=== PATIENT | female | born 1995 | race Caucasian/White ===

== ENCOUNTER 2022-05-31 12:04 | Emergency (ER) | payer MEDICAID, SELFPAY ==
[2022-05-31 12:35] VITALS: BP 141/87; PULSE 92; RESP 18; TEMP 37.2; O2SAT 97; BMI 30.3
--- NOTE | 2022-05-31 12:37 | EXP.UTC ---
Discharge Plan Disposition Patient Disposition: Home, Self-Care Condition: Good Prescriptions Prescriptions: New pllubihnmylcige-eulpxlmpw-ML [Bromfed DM] 2-30-10 mg/5 mL Syrup 5 ml PO Q6H PRN (Reason: Cough) Qty: 240 0RF ondansetron 4 mg Tablet,Disintegrating 4 mg PO Q8H PRN (Reason: Nausea) Qty: 12 0RF No Action melatonin 3 MG tablet 3 mg PO HS Referrals Follow up/Referrals: Provider,Referral, MD [Primary Care Provider] - See instructions Activity Restrictions/Add. Instructions Additional Instructions/Restrictions: Drink plenty of fluids. Take tylenol or ibuprofen for pain or fever. Take the medications as directed. Follow up with your regular doctor. GO TO THE ER FOR ANY WORSENING SYMPTOMS Quarantine until you know the results of your covid-19 test. Notify your school or workplace of your results and follow their instructions regarding return to work/school. Clinical Impressions Clinical Impression: Acute viral syndrome Stand Alone Forms Stand Alone Forms: Work/School Release Instructions Patient Instructions: DI for Viral Syndrome Discharge ED Provider: Leonel Leyva [facility] General Stated complaint: Nausea,Dizziness,fever,headache,SOA Time Seen by Provider: 05/31/22 12:37 History of Present Illness Provider Complaint: She states that for the past 2 days she has had fever, chills, body aches, nausea, diarrhea, and malaise. She denies sore throat. Related Data Home Medications Medication Instructions Recorded Confirmed melatonin 3 mg tablet 3 mg PO HS SLEEP 07/26/17 07/26/17 Previous Rx's Medication Instructions Recorded onvvrkpvbobyuwp-pmwumzhwrjnjxfz-QV 5 ml PO Q6H PRN Cough #240 mL 05/31/22 2 mg-30 mg-10 mg/5 mL oral syrup (Bromfed DM) ondansetron 4 mg disintegrating 4 mg PO Q8H PRN Nausea #12 tabs 05/31/22 tablet Allergies Allergy/AdvReac Type Severity Reaction Status Date / Time No Known Allergies Allergy Verified 03/22/17 15:49 [facility] Disclaimer: The information contained in this section may have been updated after the patient was seen, as this information can be updated by other users. Social History Smoking Status: Never smoker alcohol intake: never substance use type: denies use current occupational status: employed Travel in the last 8 weeks: None ROS Obtained: Yes All systems reviewed & no additional complaints except as documented Constitutional Constitutional: Reports chills and Reports fever(s) Eyes Eyes: Denies eye discharge ENT Ears, Nose, Mouth, and Throat: Reports as per HPI Cardiovascular Cardiovascular: Denies chest pain Respiratory Respiratory: Denies chest congestion and Reports cough Gastrointestinal Gastrointestingal: Reports nausea; Denies abdominal pain, constipation, cramping, diarrhea or vomiting Musculoskeletal Musculoskeletal: Denies arthralgias Integumentary/Breasts Skin/Breast: Denies rash Neurologic Neurologic: Denies paresthesias Physical Exam General General appearance: alert and in no apparent distress Head Head exam: atraumatic, normocephalic and normal inspection Eye Eye exam: Present normal appearance, PERRL and EOMI ENT ENT exam: Present normal exam, normal oropharynx, mucous membranes moist, TM's normal bilaterally and normal external ear exam Neck Neck exam: Present normal inspection, full ROM and trachea midline; Absent meningismus or lymphadenopathy Chest Chest inspection: Present normal inspection and symmetric chest wall rise; Absent tenderness Respiratory Respiratory exam: Present normal lung sounds bilaterally; Absent respiratory distress Cardiovascular Cardiovascular exam: Present regular rate and normal rhythm; Absent JVD Abdominal Exam Abdominal exam: Present soft and normal bowel sounds; Absent distention, tenderness or guarding Extremities Exam Extremities exam: Present normal inspection, full ROM
[2022-05-31 13:11] LABS: UTC Influenza A Antigen Negative (Negative)
[2022-05-31 13:12] LABS: UTC Influenza B Antigen Negative (Negative)
[2022-05-31 13:40] VITALS: BP 141/87; PULSE 92; RESP 18; TEMP 37.2; O2SAT 97
[2022-05-31 14:28] LABS: Adenovirus,PCR Not Detected (NotDetected); Bordetella Pertussis Not Detected (NotDetected); Chlamydophila Pneumoniae, PCR Not Detected (NotDetected); Coronavirus 19, PCR Not Detected (NotDetected); Coronavirus 229E Not Detected (NotDetected); Coronavirus NL63 Not Detected (NotDetected); Coronavirus OC43 Not Detected (NotDetected); Coronovirus HKU1,PCR Not Detected (NotDetected); Human Metapneumovirus Not Detected (NotDetected); Influenza A, PCR Not Detected (NotDetected); Influenza AH1, 2009 Not Detected (NotDetected); Influenza AH1, PCR Not Detected (NotDetected); Influenza AH3,PCR Not Detected (NotDetected); Influenza B, PCR Not Detected (NotDetected); Mycoplasma Pneumoniae, PCR Not Detected (NotDetected); Parainfluenza 1, PCR Not Detected (NotDetected); Parainfluenza 2, PCR Not Detected (NotDetected); Parainfluenza 3, PCR Not Detected (NotDetected); Parainfluenza 4, PCR Not Detected (NotDetected); Respiratory Syncytial Virus Not Detected (NotDetected); Rhinovirus/Enterovirus Not Detected (NotDetected)
== END 2022-05-31 13:42 | disposition home or self-care (01) ==
PROVIDERS: Emergency Provider Nurse Practitioner Family
DX: R51.9 Headache, unspecified (principal); R42 Dizziness and giddiness; R11.0 Nausea; R50.9 Fever, unspecified; R53.81 Other malaise; B34.9 Viral infection, unspecified
CPT/HCPCS: 87581; 87632; 87798; 87804; 99212; 99214; C9803; G0463; U0003; U0005

== ENCOUNTER 2022-07-23 22:43 | Emergency (ER) | payer MEDICAID, SELFPAY ==
[2022-07-23 22:50] VITALS: BP 149/100; PULSE 88; RESP 14; TEMP 36.7; O2SAT 98; BMI 31.6
--- NOTE | 2022-07-23 22:54 | CT_ITS ---
PROCEDURE INFORMATION: Exam: CT Abdomen And Pelvis With Contrast Exam date and time: 07/23/2022 11:40 PM Age: 26 years old Clinical indication: Abdominal pain; Patient HX: Ruq pain; Additional info: Abd pain TECHNIQUE: Imaging protocol: Computed tomography of the abdomen and pelvis with contrast. Radiation optimization: All CT scans at this facility use at least one of these dose optimization techniques: automated exposure control; mA and/or kV adjustment per patient size (includes targeted exams where dose is matched to clinical indication); or iterative reconstruction. Contrast material: ISOVUE; Contrast volume: 75 ml; Contrast route: IV; REPORTING DATA: Count of CT and Cardiac NM exams in prior 12 months: This patient has received 0 known CTs and 0 known cardiac nuclear medicine studies in the 12 months prior to the current study. COMPARISON: CR PELAP PELVIS AP ONLY 14/01/2017 18:29 FINDINGS: Liver: Normal. No mass. Gallbladder and bile ducts: Distended gallbladder with subtle pericholecystic edema. Pancreas: Normal. No ductal dilation. Spleen: Normal. No splenomegaly. Adrenal glands: Normal. No mass. Kidneys and ureters: Normal. No hydronephrosis. Stomach and bowel: Unremarkable. No obstruction. No mucosal thickening. Appendix: No evidence of appendicitis. Intraperitoneal space: Unremarkable. No free air. No significant fluid collection. Vasculature: Unremarkable. No abdominal aortic aneurysm. Lymph nodes: Unremarkable. No enlarged lymph nodes. Urinary bladder: Unremarkable as visualized. Reproductive: Unremarkable as visualized. Bones/joints: Unremarkable. No acute fracture. Soft tissues: Unremarkable. Other findings: Stigmata of old granulomatous disease. IMPRESSION: Distended gallbladder with subtle pericholecystic edema. Please correlate clinically for evidence of acute cholecystitis. Consider ultrasound for further evaluation.
--- NOTE | 2022-07-23 23:08 | PC.NURSE ---
offered blanket, declined. offered bathroom, declined. advised we needed a urine specimen for urinalysis. Continuing to wait.
[2022-07-23 23:13] LABS: Basophils % 0.4 % (0.1-2.0); Eosinophils # 0.3 K/mm3 (0.0-0.4); Eosinophils % 2.8 % (0.1-12.0); Hematocrit 43.4 % (37.0-47.0); Hemoglobin 14.2 g/dL (12.2-16.2); Lymphocytes % 21.3 % (10-50); Mean Corpuscular HGB Conc 32.8 g/dL (31.8-35.4); Mean Corpuscular Hemoglobin 28.9 pg (27.0-31.2); Mean Corpuscular Volume 88.2 fl (81-99); Mean Platelet Volume 7.6 fl (7.4-10.4); Monocytes # 0.6 K/mm3 (0.1-1.0); Monocytes % 6.3 % (1.7-9.3); Neutrophils # 6.6 K/mm3 (1.8-7.8); Neutrophils % 69.2 % (37.0-80.0); Platelet Count 387 K/mm3 (142-424); Red Blood Count 4.92 M/mm3 (4.20-5.40); Red Cell Distribution Width 12.7 % (11.5-17.5); White Blood Count 9.5 K/mm3 (4.8-10.8)
[2022-07-23 23:19] LABS: Alanine Aminotransferase 43 U/L (12-78); Albumin Level 4.4 g/dl (3.5-5.0); Albumin/Globulin Ratio 1.4 (1.1-1.8); Alkaline Phosphatase 68 U/L (38-126); Amylase 77 U/L (30-110); Anion Gap 15.7 mEq/L (5-15); Aspartate Amino Transferase 35 U/L (14-36); Bilirubin,Total 0.3 mg/dl (0.2-1.3); Blood Urea Nitrogen 10 mg/dl (7-17); Calcium 8.7 mg/dl (8.4-10.2); Carbon Dioxide 27 mmol/L (22.0-30.0); Chloride 101 mmol/L (98-107); Creatinine Clearance Estimated 162 mL/min (50-200); Estimated Glomerular Filt Rate 88 ml/min (>60); GFR (African American) 107 ML/MIN (>60); Globulin 3.1 g/dL (1.3-3.2); Glucose 99 mg/dl (74-100); Lipase 79 U/L (23-300); Potassium 3.7 mmoL/L (3.5-5.1); Sodium 140 mmol/L (136-145); Total Protein,Serum 7.5 g/dl (6.3-8.2)
[2022-07-23 23:24] LABS: C-Reactive Protein 1.1 mg/L (0-4)
[2022-07-23 23:28] LABS: HCG Qualitative, Serum Negative (Negative)
--- NOTE | 2022-07-23 23:29 | HMH.EDABDPAI ---
Discharge Plan Disposition Patient Disposition: Home, Self-Care Prescriptions Prescriptions: New ondansetron HCl 4 mg Tablet 4 mg PO Q8H PRN (Reason: Nausea) Qty: 20 0RF No Action melatonin 3 MG tablet 3 mg PO HS fzmkbqajmggbmge-trdtmilji-ET [Bromfed DM] 2-30-10 mg/5 mL Syrup 5 ml PO Q6H PRN (Reason: Cough) Qty: 240 0RF ondansetron 4 mg Tablet,Disintegrating 4 mg PO Q8H PRN (Reason: Nausea) Qty: 12 0RF Referrals Follow up/Referrals: Simon Hope MD [Staff Physician] - See instructions Provider,Rocío, [Primary Care Provider] - See instructions Ravindra Casillas MD [Staff Physician] - See instructions Clinical Impressions Clinical Impression: Gallbladder attack Instructions Patient Instructions: DI for General Gallbladder Conditions Discharge ED Provider: Dior (ED)Mitul Abdominal Pain HPI General Chief Complaint: Abdominal Pain Stated Complaint: r side pain Time Seen by Provider: 07/23/22 23:00 Mode of Arrival: Family Vehicle Source of Information: Patient, Spouse and Medical Record Limitations: No Limitations Description of Symptoms (Recalled from ER Triage Doc. by RN): 26 YO FEMALE WITH CC OF RUQ abd pain that radiates into RLQ. afebrile. States it began earlier this date. Additional mentioning of nausea. No vomiting. No diarrhea. Last BM: 2 hours ago and normal. Afebrile. LMP: 07/18/22, slightly spotty, not as heavy as usual. Concern for . No previous surgical history to abd. History of Present Illness HPI narrative: pt with rt upper abd pain which started tonight with assoc nausea complaint: abdominal pain Onset (ago): hour(s) Consistency: intermittent Location: RUQ Severity: moderate Quality: sharp Associated symptoms: nausea Related Data Home Medications Medication Instructions Recorded Confirmed melatonin 3 mg tablet 3 mg PO HS SLEEP 07/26/17 07/26/17 Previous Rx's Medication Instructions Recorded dbemtcwbfmbuvls-goicvhacberbkpl-MA 5 ml PO Q6H PRN Cough #240 mL 05/31/22 2 mg-30 mg-10 mg/5 mL oral syrup (Bromfed DM) ondansetron 4 mg disintegrating 4 mg PO Q8H PRN Nausea #12 tabs 05/31/22 tablet ondansetron HCl 4 mg tablet 4 mg PO Q8H PRN Nausea #20 tabs 07/24/22 Allergies Allergy/AdvReac Type Severity Reaction Status Date / Time No Known Allergies Allergy Verified 03/22/17 15:49 PFSH [facility] Disclaimer: The information contained in this section may have been updated after the patient was seen, as this information can be updated by other users. Social History (Updated 06/01/22 @ 17:04 by Leonel Leyva APRN) Smoking Status: Former smoker alcohol intake: never substance use type: denies use current occupational status: employed Travel in the last 8 weeks: None ROS Obtained: Yes All systems reviewed & no additional complaints except as documented Physical Exam General General appearance: alert Head Head exam: normocephalic Eye Eye exam: Present PERRL and EOMI; Absent scleral icterus ENT ENT exam: Present mucous membranes moist Neck Neck exam: Present trachea midline Respiratory Respiratory exam: Absent respiratory distress Cardiovascular Cardiovascular exam: Present regular rate Abdominal Exam Abdominal exam: Present soft, tenderness and Salmon's sign; Absent guarding, rebound or rigidity Abdominal tenderness: Present RUQ and moderate Extremities Exam Extremities exam: Present full ROM Back Exam Back exam: Absent CVA tenderness (R) Neurological Exam Neurological exam: Present alert, oriented X3 and CN II-XII intact; Absent motor sensory deficit Psychiatric Psychiatric exam: Present normal affect Skin Skin exam: Absent rash Medical Decision Making Medical Records Medical records reviewed: Yes I reviewed the patient's medical records. Peter Inquiry Pt receiving controlled substance: No Vital Signs: 07/23/22 22:50 Temperature 98.1 F Temperature Source Oral Pulse Rate [Right Brachial] 88 Re
[2022-07-23 23:41] LABS: Erythrocyte Sedimentation Rate 15 mm/hr (0-20)
[2022-07-23 23:42] LABS: Procalcitonin < 0.030 ng/mL (0.0-2.0)
[2022-07-24 00:08] LABS: Microscopic, Urine URINE MICROSCOPIC (MICROSCOPIC)
[2022-07-24 00:24] LABS: Appearance,Urine CLEAR (Clear); Bilirubin,Urine Negative (Negative); Blood, Urine Negative (Negative); Color,Urine YELLOW (Yellow); Glucose,Urine (UA) Negative (Negative); Ketones,Urine Negative (Negative); Leukocyte Esterase,Urine Negative (Negative); Nitrate,Urine Negative (Negative); PH,Urine 5.5 (5.0-8.5); Protein,Urine Negative (Negative); Specific Gravity, Urine 1.015 (1.005-1.030); Urobilinogen,Urine 0.2 EU/dl (0.2)
[2022-07-24 00:29] LABS: Squamous Epithelial Cell,Urine Occasional #/hpf (0-5); WBC,Urine Occasional #/hpf (0-3)
[2022-07-24 00:30] LABS: Urine Pregnancy, HCG Qual. Negative (Negative)
[2022-07-24 01:28] VITALS: BP 126/84; PULSE 83; RESP 18; TEMP 36.6
== END 2022-07-24 01:32 | disposition home or self-care (01) ==
PROVIDERS: Emergency Provider Emergency Medicine
DX: R10.11 Right upper quadrant pain (principal); K82.9 Disease of gallbladder, unspecified; R11.0 Nausea; Z87.891 Personal history of nicotine dependence
CPT/HCPCS: 74177; 80053; 81001; 81025; 82150; 83690; 84145; 84703; 85025; 85651; 86140; 96361; 96374; 96375; 99285; J2405; Q9967

== ENCOUNTER → 2022-08-08 14:16 | Outpatient (CLI) | payer MEDICAID, SELFPAY ==
[2022-08-08 15:02] LABS: Urine Pregnancy, HCG Qual. Negative (Negative)
== END ==
PROVIDERS: Visit Provider Surgery
DX: Z01.812 Encounter for preprocedural laboratory examination (principal); K81.2 Acute cholecystitis with chronic cholecystitis
CPT/HCPCS: 81025

== ENCOUNTER 2022-08-10 08:57 | Day surgery (SDC) | payer MEDICAID, SELFPAY ==
[2022-08-08 13:16] VITALS: BMI 31.8
[2022-08-10] VITALS (10 sets, daily range): BP systolic 118–138; BP diastolic 67–84; PULSE 68–84; RESP 16–24; TEMP 36.4–43; O2SAT 92–100
--- NOTE | 2022-08-10 09:46 | P.PN_ITS ---
[facility] Disclaimer: The information contained in this section may have been updated after the patient was seen, as this information can be updated by other users. Medical History No significant past medical history Surgical History History of placement of ear tubes History of wisdom tooth extraction Family History Other No significant family history Social History Smoking Status: Current every day smoker tobacco type: e-cigarettes alcohol intake: current substance use type: denies use current occupational status: unemployed Travel in the last 8 weeks: None household members: significant other housing: house lives independently: Yes marital status: single education level: high school service: No caffeine: Yes special aurora needs: No do you feel safe at home: Yes victim of physical abuse: No victim of emotional abuse: No victim of sexual abuse: No would you like helpful sources: No [facility] Anesthesia Checklist Patient Identification Patient Identification: Arm Band Structural Data Admitted From: Home Planned Operative Procedure/s: Laparoscopic Cholecystectomy Consent for Planned Operative Procedure(s) Verified: Yes Verified Documents: Surgical Consent and History and Physical NPO Status Verified Time NPO: 00:00 Additional verifications Anesthesia Reactions: No Hx Blood Transfusions: No Blood Transfusion Reaction: No Airway Assessment C-Spine Mobility Assessed: Yes TMJ Mobility Assessed: Yes Dentition: Good Dentition Neurological Assessment Level of Consciousness: Awake and Alert Anesthesia Plan Anesthesia Risk discussed: Yes Anesthesia Plan: Verified ASA Class: II Anesthesia Type: General
--- NOTE | 2022-08-10 11:22 | EXP.OP.NOTE ---
Date of procedure: 08/10/22 Pre-op Diagnosis:: Acute on chronic cholecystitis Post-op Diagnosis:: Same Procedure performed:: Laparoscopic cholecystectomy Surgeon:: Ravindra Casillas MD Anesthesia: GETAnitra Estimated blood loss (mL): 15 Operative findings:: Infundibular thickening Focal pericholecystic edema and fat stranding Operative note:: After informed consent was obtained, the patient was taken to the operating room and placed in the supine position. General anesthesia was induced and the abdomen was prepped and draped in a sterile fashion. After infiltration with local anesthetic an infraumbilical incision was made. A Veress needle was placed in position. The abdomen was insufflated. A 5 mm optical trocar was placed in position. Under direct visualization, a 12 mm trocar was placed in the subxiphoid position and 2 additional 5 mm trocars were placed in the right upper quadrant. The gallbladder was elevated up and over the liver margin. The tissue around the cystic duct was carefully dissected. 3 clips were placed proximally and the duct was transected with harmonic angelica. Harmonic angelica were then utilized to dissect the gallbladder away from the liver margin with careful attention to the control of the cystic artery. The gallbladder was placed in a retrieval bag and removed through the subxiphoid trocar site. The right upper quadrant was thoroughly irrigated. No active bleeding or bile leak was noted. Fascia at the subxiphoid trocar site was reapproximated utilizing the NeoClose device. The remaining trocars were removed. All wounds were irrigated and skin was closed with 4-0 Monocryl in a subcuticular fashion. Steri-Strips were applied. The patient's anesthetic agents were reversed and extubation was completed prior to transfer to recovery in stable condition. Condition: stable Disposition: PACU Specimens:: Gallbladder and contents Complications:: No immediate
--- NOTE | 2022-08-10 11:43 | P.PNANES_ITS ---
[facility] Anesthesia Record Part I Anesthesia Record I Intake, IV Amount: 900 Estimated blood loss (mL): 15 Urine output (mL): 0 Blood Products used (#): none Blood Pressure: 118/76 SaO2: 92 Pulse Rate: 74 Respiratory Rate: 24 Temperature: 97.5 F Patient is:: Drowsy and Stable Stable to PACU at:: 11:35
--- NOTE | 2022-08-10 12:07 | SUR.PHASEI ---
1205- detailed report called to ailin farias in post op 1206- pt left in stable conditon with ailin farias in post op. All VSS, dressings CDI.
--- NOTE | 2022-08-11 07:25 | EXP.ANES.II ---
[facility] Anesthesia Record Part II Anesthesia Record Part II Discharge Time: 11:55 Destination: [facility] Day [facility] (OP Surgery) PACU nurse assessment reviewed?: Yes Patient Condition:: Good Anesthesia Complications:: None Swallowing reflex intact?: Yes Cyanosis?: No Blood Pressure: 129/75 Pulse Rate: 73 Temperature: 97.5 F Mental Status: Alert & Oriented Pain level:: 5 Nausea and/or vomitting:: None Intake, IV Amount: 0
[2022-08-11 07:26] VITALS: BP 129/75; PULSE 73; TEMP 36.4
== END 2022-08-10 12:36 | disposition home or self-care (01) ==
PROVIDERS: Visit Provider Surgery
PROC: 0FT44ZZ Resection of Gallbladder, Percutaneous Endoscopic Approach (ICD-10-PCS; CPT 47562; principal; 2022-08-10 10:30)
DX: K80.10 Calculus of gallbladder with chronic cholecystitis without obstruction (principal)
CPT/HCPCS: 47562; 96374; J2405

== ENCOUNTER 2022-12-18 11:55 | Emergency (ER) | payer OTHER, MEDICAID, SELFPAY ==
[2022-12-18 12:06] VITALS: BP 149/88; PULSE 103; RESP 16; TEMP 36.7; O2SAT 98; BMI 30.7
--- NOTE | 2022-12-18 12:10 | US_ITS ---
PROCEDURE INFORMATION: Exam: US , Transvaginal Exam date and time: 12/18/2022 12:30 PM Age: 27 years old Clinical indication: complicated by abdominal or pelvic pain; Left lower quadrant; First trimester (<14 weeks 0 days); Gestational age or lmp: 10w 6d; ; Additional info: Possible miscarriage, lower abd cramping LABS AND CLINICAL REPORTS: Last menstrual period start date: 10/03/2022 Gestational age (Established): 10 w 6 d Estimated due date (Established): 07/10/2023 TECHNIQUE: Imaging protocol: Real-time transvaginal obstetrical ultrasound of the maternal pelvis with image documentation. Transvaginal imaging was used for better evaluation of the fetus, adnexa, and/or cervix. COMPARISON: CT ABDOMEN PELVIS W CON 07/23/2022 11:40 PM FINDINGS: Gestation: Yolk sac measures 5.9 mm. heart rate: 163 bpm BIOMETRY: Gestational age (AUA): 10 w 2 d Estimated due date (AUA): 07/14/2023 [place] length (CRL): 32.68 mm. EGA (CRL) is 10 w 1 d MATERNAL: Right ovary/adnexa: Right ovary measures 2.92 cm x 2.51 cm x 2.1 cm. Right ovarian volume is 8.06 mL. Adequate Doppler flow. No adnexal mass. Left ovary/adnexa: Left ovary measures 3.18 cm x 2.1 cm x 1.63 cm. Left ovarian volume is 5.7 mL. Adequate Doppler flow. No adnexal mass. IMPRESSION: Single viable intrauterine whose gestational age based on present parameters is 10 weeks 2 days.
[2022-12-18 12:17] VITALS: BP 142/88; PULSE 88; O2SAT 100
--- NOTE | 2022-12-18 12:17 | HMH.EDGENADL ---
Discharge Plan Disposition Patient Disposition: Home, Self-Care Condition: Good Referrals Follow up/Referrals: Provider,Referral, MD [Primary Care Provider] - See instructions Activity Restrictions/Add. Instructions Additional Instructions/Restrictions: You were evaluated in the emergency department today. Please follow-up with your OB closely. Return to the emergency department for new or worsening symptoms. Clinical Impressions Clinical Impression: Abdominal pain affecting , Hypokalemia Stand Alone Forms Stand Alone Forms: Work/School Release Instructions Patient Instructions: DI for Hypokalemia, DI for Acute Abdominal Pain, DI for Abdominal Pain -- Early Discharge ED Provider: Tran Wilson General Adult HPI General Chief complaint: Abdominal Pain Stated complaint: 10wks , crampling Time Seen by Provider: 12/18/22 12:12 Mode of Arrival: Ambulatory Source of Information: Patient Limitations: No Limitations Description of Symptoms (Recalled from ER Triage Doc. by RN): 27 yo F presents to ED with c/o cramping in lower abdomen that began this am while she was at work. pt reports that she has hx of 2 miscarriages. pt reports no bleeding, pt has not seen an obgyn yet but does have ruben ppoitment scheduled with one next week. History of Present Illness HPI narrative: This patient is a 27-year-old female at estimated 10 weeks gestation by last menstrual period with a history of PCOS presented to the emergency department for evaluation with concern for left lower quadrant pain/cramping. She reports that this started this morning while she was at work. She notes that she had 2 prior miscarriages, so she became concerned. She has not yet had confirmatory ultrasound this . She denies any fevers, chills, dysuria, polyuria, hematuria, abnormal vaginal discharge, bleeding, or other concerns. Related Data Allergies Allergy/AdvReac Type Severity Reaction Status Date / Time No Known Allergies Allergy Verified 08/16/22 11:11 [facility] Disclaimer: The information contained in this section may have been updated after the patient was seen, as this information can be updated by other users. Medical History No significant past medical history Surgical History History of laparoscopic cholecystectomy History of placement of ear tubes History of wisdom tooth extraction Family History Other No significant family history Social History Smoking Status: Current every day smoker tobacco type: e-cigarettes alcohol intake: current substance use type: denies use current occupational status: unemployed Travel in the last 8 weeks: None household members: significant other housing: house lives independently: Yes marital status: single education level: high school service: No caffeine: Yes special aurora needs: No do you feel safe at home: Yes victim of physical abuse: No victim of emotional abuse: No victim of sexual abuse: No would you like helpful sources: No ROS Obtained: Yes All systems reviewed & no additional complaints except as documented Physical Exam General General appearance: alert and in no apparent distress Head Head exam: atraumatic and normocephalic Eye Eye exam: Present normal appearance, PERRL and EOMI ENT ENT exam: Present normal exam, normal oropharynx, mucous membranes moist and normal external ear exam Neck Neck exam: Present normal inspection, full ROM and trachea midline; Absent tenderness Chest Chest inspection: Present normal inspection and symmetric chest wall rise; Absent tenderness Respiratory Respiratory exam: Present normal lung sounds bilaterally; Absent respiratory distress, wheezes, strid
[2022-12-18 12:19] LABS: Appearance,Urine CLEAR (Clear); Bilirubin,Urine Negative (Negative); Blood, Urine Negative (Negative); Color,Urine YELLOW (Yellow); Glucose,Urine (UA) Negative (Negative); Ketones,Urine TRACE (Negative); Leukocyte Esterase,Urine Negative (Negative); Microscopic, Urine URINE MICROSCOPIC (MICROSCOPIC); Nitrate,Urine Negative (Negative); Protein,Urine Negative (Negative); Specific Gravity, Urine >= 1.030 (1.005-1.030); Urobilinogen,Urine 0.2 EU/dl (0.2)
[2022-12-18 12:24] LABS: Chloride 104 mmol/L (98-107); Sodium 137 mmol/L (136-145)
[2022-12-18 12:25] LABS: Potassium 3.4 mmoL/L (3.5-5.1)
[2022-12-18 12:27] LABS: Alanine Aminotransferase 43 U/L (12-78); Albumin Level 4.6 g/dl (3.5-5.0); Albumin/Globulin Ratio 1.4 (1.1-1.8); Alkaline Phosphatase 53 U/L (38-126); Anion Gap 12.4 mEq/L (5-15); Aspartate Amino Transferase 42 U/L (14-36); Basophils # 0.1 K/mm3 (0-0.2); Basophils % 0.7 % (0.1-2.0); Bilirubin,Total 0.3 mg/dl (0.2-1.3); Blood Urea Nitrogen 9 mg/dl (7-17); Carbon Dioxide 24 mmol/L (22.0-30.0); Creatinine Clearance Estimated 167 mL/min (50-200); Eosinophils # 0.2 K/mm3 (0.0-0.4); Eosinophils % 2.5 % (0.1-12.0); Estimated Glomerular Filt Rate 102 ml/min (>60); GFR (African American) 123 ML/MIN (>60); Globulin 3.2 g/dL (1.3-3.2); Hemoglobin 14.6 g/dL (12.2-16.2); Lymphocytes # 1.7 K/mm3 (0.7-4.5); Lymphocytes % 19.6 % (10-50); Mean Corpuscular HGB Conc 34.6 g/dL (31.8-35.4); Mean Corpuscular Hemoglobin 30.8 pg (27.0-31.2); Mean Corpuscular Volume 88.9 fl (81-99); Mean Platelet Volume 7.5 fl (7.4-10.4); Monocytes # 0.5 K/mm3 (0.1-1.0); Monocytes % 5.2 % (1.7-9.3); Neutrophils # 6.2 K/mm3 (1.8-7.8); Platelet Count 353 K/mm3 (142-424); Red Blood Count 4.73 M/mm3 (4.20-5.40); Red Cell Distribution Width 13.1 % (11.5-17.5); Total Protein,Serum 7.8 g/dl (6.3-8.2); White Blood Count 8.6 K/mm3 (4.8-10.8)
[2022-12-18 12:28] LABS: Calcium 8.8 mg/dl (8.4-10.2); Glucose 93 mg/dl (74-100)
[2022-12-18 12:34] LABS: Bacteria,Urine 1+ /lpf; Mucus,Urine Trace /lpf; WBC,Urine Occasional #/hpf (0-3)
[2022-12-18 13:06] VITALS: BP 151/97; PULSE 78; RESP 16; O2SAT 98
--- NOTE | 2022-12-18 13:25 | PC.NURSE ---
Assume care of patient at this time
[2022-12-18 13:30] VITALS: BP 139/95; PULSE 89; RESP 16; O2SAT 99
[2022-12-18 13:43] VITALS: BP 139/95; PULSE 87; RESP 16; TEMP 36.6; O2SAT 98
== END 2022-12-18 13:39 | disposition home or self-care (01) ==
PROVIDERS: Emergency Provider Emergency Medicine
DX: O26.891 Other specified pregnancy related conditions, first trimester (principal); R10.32 Left lower quadrant pain; E87.6 Hypokalemia; Z3A.10 10 weeks gestation of pregnancy; O99.331 Smoking (tobacco) complicating pregnancy, first trimester; F17.290 Nicotine dependence, other tobacco product, uncomplicated; E28.2 Polycystic ovarian syndrome
CPT/HCPCS: 76817; 80053; 81001; 84702; 85025; 86850; 99284

== ENCOUNTER → 2023-01-22 16:53 | Outpatient (CLI) | payer MEDICAID, SELFPAY | PROVIDERS: PCP Obstetrics & Gynecology; Visit Provider Obstetrics & Gynecology | DX: Z34.92 Encounter for supervision of normal pregnancy, unspecified, second trimester (principal); Z3A.15 15 weeks gestation of pregnancy | CPT/HCPCS: 87086 ==

== ENCOUNTER 2023-01-30 10:09 | Emergency (ER) | payer MEDICAID, SELFPAY ==
[2023-01-30 11:30] VITALS: BP 133/91; PULSE 102; RESP 18; TEMP 36.5; O2SAT 98; BMI 31.8
--- NOTE | 2023-01-30 11:39 | EXP.UTC ---
Discharge Plan Disposition Patient Disposition: Home, Self-Care Condition: Good Prescriptions Prescriptions: No Action Classic 28 mg iron- 800 mcg tablet 1 tab PO DAILY Referrals Follow up/Referrals: Provider,Referral, [Primary Care Provider] - See instructions Activity Restrictions/Add. Instructions Additional Instructions/Restrictions: Drink plenty of fluids. Take tylenol for pain or fever. Follow up with your regular doctor. 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 GO TO THE ER FOR ANY WORSENING SYMPTOMS Clinical Impressions Clinical Impression: Acute viral syndrome, Stand Alone Forms Stand Alone Forms: Work/School Release Instructions Patient Instructions: DI for Viral Syndrome Discharge ED Provider: Leonel Leyva [facility] General Stated complaint: cough,runny nose,fever Time Seen by Provider: 01/30/23 11:39 History of Present Illness Provider Complaint: She states that for the past 2 days she has had fever, cough, runny nose, and body aches. She is 17 weeks . She denies any abdominal pain or back pain. Related Data Home Medications Medication Instructions Recorded Confirmed vits no.126-ferrous fum 1 tab PO DAILY 01/22/23 01/30/23 28 mg iron-folic acid 800 mcg tablet (Classic ) Allergies Allergy/AdvReac Type Severity Reaction Status Date / Time No Known Allergies Allergy Verified 01/30/23 12:01 [facility] Disclaimer: The information contained in this section may have been updated after the patient was seen, as this information can be updated by other users. Medical History History of miscarriage, currently Migraines No significant past medical history Vaping nicotine dependence, tobacco product Surgical History History of laparoscopic cholecystectomy History of placement of ear tubes History of wisdom tooth extraction Family History Other Asthma FHx: mental illness Hypertension Social History Smoking Status: Current every day smoker tobacco type: e-cigarettes alcohol intake: never substance use type: denies use current occupational status: employed Travel in the last 8 weeks: None household members: significant other housing: house lives independently: Yes marital status: single education level: high school service: No caffeine: Yes special aurora needs: No do you feel safe at home: Yes victim of physical abuse: No victim of emotional abuse: No victim of sexual abuse: No would you like helpful sources: No ROS Obtained: Yes All systems reviewed & no additional complaints except as documented Constitutional Constitutional: Reports chills and Reports fever(s) Eyes Eyes: Denies eye discharge ENT Ears, Nose, Mouth, and Throat: Reports as per HPI Cardiovascular Cardiovascular: Denies chest pain Respiratory Respiratory: Denies chest congestion and Reports cough Gastrointestinal Gastrointestingal: Reports nausea; Denies abdominal pain, constipation, cramping, diarrhea or vomiting Musculoskeletal Musculoskeletal: Denies arthralgias Integumentary/Breasts Skin/Breast: Denies rash Neurologic Neurologic: Denies paresthesias Physical Exam General General appearance: alert and in no apparent distress Head Head exam: atraumatic, normocephalic and normal inspection Eye Eye exam: Present normal appearance, PERRL and EOMI ENT ENT exam: Present normal exam, normal oropharynx, mucous membranes moist, TM's normal bilaterally and normal external ear exam Neck Neck exam: Present normal inspection, full ROM and trachea midline; Absent meningismus or lymphadenopathy Chest Chest inspection: Present normal inspection and symmetric chest wall rise; Absent tenderness Respiratory Respiratory exam: Present n
[2023-01-30 11:52] LABS: UTC Influenza A Antigen Negative (Negative); UTC Influenza B Antigen Negative (Negative); UTC Strep Screen (Rapid) Negative (Negative)
[2023-01-30 12:17] VITALS: BP 133/91; PULSE 102; RESP 18; TEMP 36.5; O2SAT 98
[2023-01-30 12:26] LABS: Adenovirus,PCR Not Detected (NotDetected); Coronavirus 19, PCR Not Detected (NotDetected); Coronavirus 229E Not Detected (NotDetected); Coronavirus NL63 Not Detected (NotDetected); Coronavirus OC43 Not Detected (NotDetected); Coronovirus HKU1,PCR Not Detected (NotDetected); Human Metapneumovirus Not Detected (NotDetected); Influenza A, PCR Not Detected (NotDetected); Influenza AH1, 2009 Not Detected (NotDetected); Influenza AH1, PCR Not Detected (NotDetected); Influenza AH3,PCR Not Detected (NotDetected); Influenza B, PCR Not Detected (NotDetected); Parainfluenza 1, PCR Not Detected (NotDetected); Parainfluenza 2, PCR Not Detected (NotDetected); Parainfluenza 3, PCR Not Detected (NotDetected); Parainfluenza 4, PCR Not Detected (NotDetected); Rhinovirus/Enterovirus Not Detected (NotDetected)
[2023-01-30 14:48] LABS: Respiratory Syncytial Virus Detected (NotDetected)
== END 2023-01-30 12:17 | disposition home or self-care (01) ==
PROVIDERS: Emergency Provider Nurse Practitioner Family
DX: O98.512 Other viral diseases complicating pregnancy, second trimester (principal); B97.4 Respiratory syncytial virus as the cause of diseases classified elsewhere; Z3A.17 17 weeks gestation of pregnancy; R05.9 Cough, unspecified; R50.9 Fever, unspecified; R09.81 Nasal congestion; O99.332 Smoking (tobacco) complicating pregnancy, second trimester; F17.290 Nicotine dependence, other tobacco product, uncomplicated
CPT/HCPCS: 87632; 87635; 87804; 87880; 99212; 99214; G0463

== ENCOUNTER 2023-02-23 09:42 | Outpatient (CLI) | payer OTHER, MEDICAID, SELFPAY ==
--- NOTE | 2023-02-23 09:44 | US_ITS ---
PROCEDURE: US OB /MATERNAL DETAIL CLINICAL INDICATION: 20 week anatomy scan COMPARISON: No exams were available for comparison FINDINGS: Transabdominal sonographic images of the pelvis were obtained. From her established due date she is 20 weeks 3 days. Single viable intrauterine gestation. Breech position. Placenta: Posteriorplacenta grade 1. There is an average amount of fluid. The cervix appears satisfactory. Closed and measuring 3.6 cm in length. Complete survey performed and was unremarkable on the submitted images as in PACS. No discrete anomalies identified on survey imaging by technologist. Active fetus. Three-vessel cord with satisfactory umbilical cord insertion. 4- chamber heart noted. Situs, aortic arch, LVOT, RVOT, appear normal. Views however are suboptimal. Survey of brain & ventricles Unremarkable. Cerebellum, thalamus, choroid plexus, cisterna magna appear normal. Face and neck survey unremarkable. Profile, nasion, lips and nose appeared normal. Diaphragm and chest views unremarkable. Abdomen: Both kidneys noted and left-sided renal pelvis dilation of 6.8 mm. Stomach and bladder noted and satisfactory. Spine: Survey of the spine satisfactory with no anomalies identified nor imaged. Cervical, thoracic, lower spine appear normal. Both arms and legs noted. Amniotic Fluid: Adequate. Measurements: Average ultrasound age 19weeks 3days. Estimated due date by ultrasound age 0507/17/2023. Estimated weight 292g BPD = 19weeks 2days OFD = 20weeks 1day HC = 19weeks 0 days AC = 19weeks 3days FL = 19weeks 5days Growth Percentile= 7 Heart Rate = 155bpm Cerebellum = 19weeks 2days Humerus = 19weeks 6days HC/AC is 1.16 CI is 0.74 FL/BPD is 0.72 FL/AC is 0.22 IMPRESSION: 1. Viable fetus in the breech presentation with a posterior placenta grade 1. 2. The fluid is within normal limits. 3. Anatomical scan appears normal with suboptimal views of the heart. 4. There appears to be a 6.8 mm dilation of the left renal pelvis. 5. Suggest a maternal medicine consult. Dictated by: Mario Jang MD 02/24/2023 14:31 Mario Jang MD in OV 02/24/2023 14:31
== END 2023-02-23 23:59 ==
PROVIDERS: PCP Obstetrics & Gynecology; Visit Provider Obstetrics & Gynecology
DX: Z3A.20 20 weeks gestation of pregnancy; O99.332 Smoking (tobacco) complicating pregnancy, second trimester
CPT/HCPCS: 76811

== ENCOUNTER 2023-03-07 10:34 | Emergency (ER) | payer OTHER, MEDICAID, SELFPAY ==
[2023-03-07 11:10] VITALS: BP 130/82; PULSE 80; RESP 19; TEMP 36.9; O2SAT 98; BMI 35.0
--- NOTE | 2023-03-07 11:23 | ED_ITS ---
Discharge Plan Disposition Patient Disposition: Home, Self-Care Condition: Good Prescriptions Prescriptions: New azithromycin [Zithromax] 250 mg tablet 250 mg PO UD DOSE PK Qty: 6 0RF Rx Instructions: Take two (2) tablets today, then one (1) tablet days #2 thru #5 No Action magnesium oxide 400 mg (241.3 mg magnesium) tablet 400 mg PO DAILY Classic 28 mg iron- 800 mcg tablet 1 tab PO DAILY Referrals Follow up/Referrals: Provider,Referral, MD [Primary Care Provider] - See instructions Activity Restrictions/Add. Instructions Additional Instructions/Restrictions: Drink plenty of fluids. Take tylenol for pain or fever. Take the medications as directed. Follow up with your regular doctor. Follow up with professor of food biochemistry physician. GO TO THE ER FOR ANY WORSENING SYMPTOMS Clinical Impressions Clinical Impression: Pharyngitis, , Acute viral syndrome Stand Alone Forms Stand Alone Forms: Work/School Release Instructions Patient Instructions: Sore Throat, DI for Viral Syndrome Discharge ED Provider: Leonel Leyva [facility] HPI General Stated complaint: soa, sore throat and congestion Time Seen by Provider: 03/07/23 11:23 History of Present Illness Provider Complaint: She states that for the past 3 days she has had malaise and body achest. She is currently . Related Data Home Medications Medication Instructions Recorded Confirmed vits no.126-ferrous fum 1 tab PO DAILY 01/22/23 03/07/23 28 mg iron-folic acid 800 mcg tablet (Classic ) magnesium oxide 400 mg (241.3 mg 400 mg PO DAILY 02/23/23 03/07/23 magnesium) tablet Previous Rx's Medication Instructions Recorded azithromycin 250 mg tablet 250 mg PO UD DOSE PK #6 tabs 03/07/23 (Zithromax) Allergies Allergy/AdvReac Type Severity Reaction Status Date / Time No Known Allergies Allergy Verified 03/07/23 11:28 [facility] Disclaimer: The information contained in this section may have been updated after the patient was seen, as this information can be updated by other users. Medical History History of miscarriage, currently x 2 Migraines No significant past medical history Vaping nicotine dependence, tobacco product Surgical History History of laparoscopic cholecystectomy History of placement of ear tubes History of wisdom tooth extraction Family History Other Asthma FHx: mental illness Hypertension Social History Smoking Status: Current every day smoker tobacco type: e-cigarettes alcohol intake: never substance use type: denies use current occupational status: employed Travel in the last 8 weeks: None household members: significant other housing: house lives independently: Yes marital status: single education level: high school service: No caffeine: Yes special aurora needs: No do you feel safe at home: Yes victim of physical abuse: No victim of emotional abuse: No victim of sexual abuse: No would you like helpful sources: No ROS Obtained: Yes All systems reviewed & no additional complaints except as documented Constitutional Constitutional: Reports chills and Reports fever(s) Eyes Eyes: Denies eye discharge ENT Ears, Nose, Mouth, and Throat: Reports as per HPI Cardiovascular Cardiovascular: Denies chest pain Respiratory Respiratory: Denies chest congestion and Reports cough Gastrointestinal Gastrointestingal: Reports nausea; Denies abdominal pain, constipation, cramping, diarrhea or vomiting Musculoskeletal Musculoskeletal: Denies arthralgias Integumentary/Breasts Skin/Breast: Denies rash Neurologic Neurologic: Denies paresthesias Physical Exam General General appearance: alert and in no apparent distress Head Head exam: atraumatic, normocephalic and normal inspection Eye Eye exam: Present normal appearance, PERRL and EOMI ENT ENT exam: Present mucous membranes moist and normal external ear exam Expanded ENT Exam TM/Canal exam: Bilateral TM: erythema and bulging Nose exam: Absent sinus tenderness Mouth exam: Present normal external inspection; Absent drooling Teeth exam: Present normal inspection Throat exam: Present tonsillar erythema, tonsillomegaly and tonsillar exudate Neck Neck exam: Present normal inspection, full ROM and trachea midline; Absent tenderness, meningismus or lymphadenopathy Chest Chest inspection: Present normal inspection and symmetric chest wall rise; Absen t tenderness Respiratory Respiratory exam: Present normal lung sounds bilaterally; Absent respiratory distress, wheezes or stridor Cardiovascular Cardiovascular exam: Present regular rate and normal rhythm; Absent systolic murmur or diastolic murmur Abdominal Exam Abdominal exam: Present soft and normal bowel sounds; Absent distention, tenderness, guarding, rebound or rigidity Extremities Exam Extremities exam: Present normal inspection and normal capillary refill; Absent calf tenderness Back Exam Back exam: Present normal inspection and full ROM; Absent tenderness, CVA tenderness (R) or CVA tenderness (L) Neurological Exam Neurological exam: Present alert, oriented X3 and CN II-XII intact Psychiatric Psychiatric exam: Present normal affect and normal mood Skin Skin exam: Present warm, dry, intact and normal color Medical Decision Making Medical Records Medical records reviewed: No I reviewed the patient's medical records. Peter Inquiry Pt receiving controlled substance: No Lab Data Lab results reviewed: Yes I reviewed the patient's lab results.
[2023-03-07 11:37] LABS: UTC Influenza A Antigen Negative (Negative); UTC Strep Screen (Rapid) Negative (Negative)
[2023-03-07 11:38] LABS: UTC Influenza B Antigen Negative (Negative)
[2023-03-07 12:00] LABS: Adenovirus,PCR Not Detected (NotDetected); Bordetella Pertussis Not Detected (NotDetected); Chlamydophila Pneumoniae, PCR Not Detected (NotDetected); Coronavirus 19, PCR Not Detected (NotDetected); Coronavirus 229E Not Detected (NotDetected); Coronavirus NL63 Not Detected (NotDetected); Coronavirus OC43 Not Detected (NotDetected); Coronovirus HKU1,PCR Not Detected (NotDetected); Human Metapneumovirus Not Detected (NotDetected); Influenza A, PCR Not Detected (NotDetected); Influenza AH1, 2009 Not Detected (NotDetected); Influenza AH1, PCR Not Detected (NotDetected); Influenza AH3,PCR Not Detected (NotDetected); Influenza B, PCR Not Detected (NotDetected); Mycoplasma Pneumoniae, PCR Not Detected (NotDetected); Parainfluenza 1, PCR Not Detected (NotDetected); Parainfluenza 2, PCR Not Detected (NotDetected); Parainfluenza 3, PCR Not Detected (NotDetected); Parainfluenza 4, PCR Not Detected (NotDetected); Respiratory Syncytial Virus Not Detected (NotDetected); Rhinovirus/Enterovirus Not Detected (NotDetected)
[2023-03-07 12:01] VITALS: BP 130/82; PULSE 80; RESP 18; TEMP 36.9; O2SAT 98
== END 2023-03-07 12:01 | disposition home or self-care (01) ==
PROVIDERS: Emergency Provider Nurse Practitioner Family
DX: O26.899 Other specified pregnancy related conditions, unspecified trimester (principal); J02.9 Acute pharyngitis, unspecified; M79.18 Myalgia, other site; B34.9 Viral infection, unspecified; Z3A.00 Weeks of gestation of pregnancy not specified
CPT/HCPCS: 87581; 87632; 87635; 87798; 87804; 87880; 99212; 99214; G0463

== ENCOUNTER 2023-03-18 17:03 | Emergency (ER) | payer OTHER, MEDICAID, SELFPAY ==
[2023-03-18 17:15] VITALS: BP 118/67; PULSE 113; RESP 18; TEMP 37.9; O2SAT 96; BMI 33.4
--- NOTE | 2023-03-18 17:27 | EXP.UTC ---
Discharge Plan Disposition Patient Disposition: Home, Self-Care Condition: Good Prescriptions Prescriptions: New oseltamivir [Tamiflu] 75 mg capsule 75 mg PO BID Qty: 10 0RF promethazine 25 mg tablet 25 mg PO TID PRN (Reason: nausea and vomiting) Qty: 20 0RF No Action magnesium oxide 400 mg (241.3 mg magnesium) tablet 400 mg PO DAILY Classic 28 mg iron- 800 mcg tablet 1 tab PO DAILY Referrals Follow up/Referrals: Provider,Referral, MD [Primary Care Provider] - See instructions Activity Restrictions/Add. Instructions Additional Instructions/Restrictions: Drink plenty of fluids. Take tylenol for pain or fever. Take the medications as directed. Follow up with your regular doctor. Follow up with your manager of loss prevention operations physician. Call her office tomorrow and tell them you have the flu and let them know which medications we prescribed for you. GO TO THE ER FOR ANY WORSENING SYMPTOMS Clinical Impressions Clinical Impression: Influenza A, Stand Alone Forms Stand Alone Forms: Work/School Release Instructions Patient Instructions: DI for Influenza -- Adult, Promethazine, Oseltamivir Discharge ED Provider: Leonel Leyva [facility] General Stated complaint: fever, exposed to flu, 23 wks preg Time Seen by Provider: 03/18/23 17:27 History of Present Illness Provider Complaint: She states that for the past 1 day she has had fever, chills, body aches, and malaise. She is 23 weeks . 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 Related Data Home Medications Medication Instructions Recorded Confirmed vits no.126-ferrous fum 1 tab PO DAILY 01/22/23 03/18/23 28 mg iron-folic acid 800 mcg tablet (Classic ) magnesium oxide 400 mg (241.3 mg 400 mg PO DAILY 02/23/23 03/18/23 magnesium) tablet Previous Rx's Medication Instructions Recorded oseltamivir 75 mg capsule (Tamiflu) 75 mg PO BID #10 caps 03/18/23 promethazine 25 mg tablet 25 mg PO TID PRN nausea and 03/18/23 vomiting #20 tabs Allergies Allergy/AdvReac Type Severity Reaction Status Date / Time No Known Allergies Allergy Verified 03/18/23 17:32 [facility] Disclaimer: The information contained in this section may have been updated after the patient was seen, as this information can be updated by other users. Medical History History of miscarriage, currently x 2 Migraines No significant past medical history Vaping nicotine dependence, tobacco product Surgical History History of laparoscopic cholecystectomy History of placement of ear tubes History of wisdom tooth extraction Family History Other Asthma FHx: mental illness Hypertension Social History Smoking Status: Current every day smoker tobacco type: e-cigarettes alcohol intake: never substance use type: denies use current occupational status: employed Travel in the last 8 weeks: None household members: significant other housing: house lives independently: Yes marital status: single education level: high school service: No caffeine: Yes special aurora needs: No do you feel safe at home: Yes victim of physical abuse: No victim of emotional abuse: No victim of sexual abuse: No would you like helpful sources: No ROS Obtained: Yes All systems reviewed & no additional complaints except as documented Constitutional Constitutional: Reports chills and Reports fever(s) Eyes Eyes: Denies eye discharge ENT Ears, Nose, Mouth, and Throat: Reports as per HPI Cardiovascular Cardiovascular: Denies chest pain Respiratory Respiratory: Denies chest congestion and Reports cough Gastrointestinal Gastrointestingal: Reports nausea; Denies abdominal pain, constipation, cramping, diarrhea or vomiting Musculoskeletal Musculoskeletal: Denies arthralgias Integumentary/Breasts Skin/Breast: Denies rash Neurologic Neurologic: Denies paresthesias Physical Exam General General appearance: alert and in no apparent distress Head Head exam: atraumatic, normocephalic and normal inspection Eye Eye exam: Present normal appearance, PERRL and EOMI ENT ENT exam: Present normal exam, normal oropharynx, mucous membranes moist, TM's normal bilaterally and normal external ear exam Neck Neck exam: Present normal inspection, full ROM and trachea midline; Absent meningismus or lymphadenopathy Chest Chest inspection: Present normal inspection and symmetric chest wall rise; Absent tenderness Respiratory Respiratory exam: Present normal lung sounds bilaterally; Absent respiratory distress Cardiovascular Cardiovascular exam: Present regular rate and normal rhythm; Absent JVD Abdominal Exam Abdominal exam: Present soft and normal bowel sounds; Absent distention, tenderness or guarding Extremities Exam Extremities exam: Present normal inspection, full ROM and normal capillary refill; Absent calf tenderness Back Exam Back exam: Present normal inspection; Absent tenderness Neurological Exam Neurological exam: Present alert and oriented X3 Psychiatric Psychiatric exam: Present normal affect and normal mood Skin Skin exam: Present warm, dry, intact and normal color Lymphatic Lymphatic Findings: no adenopathy Medical Decision Making Medical Records Medical records reviewed: No I reviewed the patient's medical records. Peter Inquiry Pt receiving controlled substance: No Lab Data Lab results reviewed: Yes I reviewed the patient's lab results.
[2023-03-18 17:40] LABS: UTC Influenza A Antigen Positive (Negative)
[2023-03-18 17:42] LABS: UTC Influenza B Antigen Negative (Negative)
[2023-03-18 18:00] VITALS: BP 118/67; PULSE 113; RESP 18; TEMP 37.9; O2SAT 96
== END 2023-03-18 18:00 | disposition home or self-care (01) ==
PROVIDERS: Emergency Provider Nurse Practitioner Family
DX: O98.512 Other viral diseases complicating pregnancy, second trimester (principal); J10.1 Influenza due to other identified influenza virus with other respiratory manifestations; R50.9 Fever, unspecified; M79.18 Myalgia, other site; Z3A.23 23 weeks gestation of pregnancy; O99.332 Smoking (tobacco) complicating pregnancy, second trimester; F17.290 Nicotine dependence, other tobacco product, uncomplicated
CPT/HCPCS: 87804; 99212; 99214; G0463

== ENCOUNTER 2023-03-27 07:54 | Outpatient (CLI) | payer OTHER, MEDICAID, SELFPAY ==
[2023-03-27 08:15] LABS: Basophils % 0.5 % (0.1-2.0); Eosinophils # 0.2 K/mm3 (0.0-0.4); Eosinophils % 1.8 % (0.1-12.0); Hematocrit 38.7 % (37.0-47.0); Hemoglobin 13.1 g/dL (12.2-16.2); Lymphocytes # 1.7 K/mm3 (0.7-4.5); Mean Corpuscular HGB Conc 33.8 g/dL (31.8-35.4); Mean Corpuscular Hemoglobin 31.1 pg (27.0-31.2); Mean Platelet Volume 7.9 fl (7.4-10.4); Monocytes # 0.6 K/mm3 (0.1-1.0); Monocytes % 6.6 % (1.7-9.3); Neutrophils # 5.9 K/mm3 (1.8-7.8); Neutrophils % 71.1 % (37.0-80.0); Platelet Count 333 K/mm3 (142-424); Red Cell Distribution Width 13.6 % (11.5-17.5); White Blood Count 8.3 K/mm3 (4.8-10.8)
[2023-03-27 09:46] LABS: Glucose,Fasting 89 mg/dl (74-100)
[2023-03-27 09:47] LABS: Glucose 1 Hour 119 mg/dL (74-100)
== END 2023-03-27 23:59 ==
PROVIDERS: Visit Provider Obstetrics & Gynecology
DX: Z34.92 Encounter for supervision of normal pregnancy, unspecified, second trimester (principal); Z3A.24 24 weeks gestation of pregnancy
CPT/HCPCS: 36415; 82951; 85025

== ENCOUNTER 2023-04-20 10:06 | Outpatient (CLI) | payer MEDICAID, SELFPAY ==
[2023-04-20 10:51] LABS: Basophils # 0.1 K/mm3 (0-0.2); Basophils % 0.8 % (0.1-2.0); Eosinophils # 0.2 K/mm3 (0.0-0.4); Eosinophils % 2.1 % (0.1-12.0); Hemoglobin 12.4 g/dL (12.2-16.2); Lymphocytes # 1.5 K/mm3 (0.7-4.5); Lymphocytes % 17.3 % (10-50); Mean Corpuscular HGB Conc 33.4 g/dL (31.8-35.4); Mean Corpuscular Hemoglobin 31.2 pg (27.0-31.2); Mean Corpuscular Volume 93.3 fl (81-99); Mean Platelet Volume 7.7 fl (7.4-10.4); Monocytes # 0.5 K/mm3 (0.1-1.0); Monocytes % 5.7 % (1.7-9.3); Neutrophils # 6.3 K/mm3 (1.8-7.8); Neutrophils % 74.2 % (37.0-80.0); Platelet Count 321 K/mm3 (142-424); Red Blood Count 3.96 M/mm3 (4.20-5.40); Red Cell Distribution Width 13.5 % (11.5-17.5); White Blood Count 8.5 K/mm3 (4.8-10.8)
[2023-04-21 06:29] LABS: Rubella Antibodies, IgG <0.90 index (Immune >0.99)
[2023-04-21 11:50] LABS: Rapid Plasma Reagin Ab Titer Non Reactive titer (NonRea<1:1)
[2023-04-24 10:29] LABS: HIV Screen 4th Generation wRfx Non Reactive; Hepatitis B Surface Antigen Negative; Hepatitis C Antibody Non Reactive
== END 2023-04-20 23:59 ==
LOC: LAB 10:07
PROVIDERS: Visit Provider Obstetrics & Gynecology
DX: O26.893 Other specified pregnancy related conditions, third trimester (principal); Z3A.28 28 weeks gestation of pregnancy
CPT/HCPCS: 36415; 85025; 86593; 86703; 86762; 86850; 87340; 87380; G0432

== ENCOUNTER 2023-05-18 19:09 | Emergency (ER) | payer MEDICAID, SELFPAY ==
[2023-05-18 19:15] VITALS: BP 135/90; PULSE 92; RESP 20; TEMP 36.9; O2SAT 98; BMI 38.0
--- NOTE | 2023-05-18 19:23 | ED_ITS ---
Discharge Plan Disposition Patient Disposition: Home, Self-Care Condition: Good Prescriptions Prescriptions: New prednisone 20 mg tablet 20 mg PO BID Qty: 10 0RF cetirizine [Zyrtec] 10 mg tablet 10 mg PO DAILY PRN (Reason: allergy symptoms) Qty: 30 2RF albuterol sulfate [Ventolin HFA] 90 mcg/actuation HFA aerosol inhaler 2 puff inhalation QIDP PRN (Reason: Wheezing) Qty: 1 0RF No Action magnesium oxide 400 mg (241.3 mg magnesium) tablet 400 mg PO DAILY Classic 28 mg iron- 800 mcg tablet 1 tab PO DAILY promethazine 25 mg tablet 25 mg PO TID PRN (Reason: nausea and vomiting) Qty: 20 0RF Referrals Follow up/Referrals: Provider,Referral, MD [Primary Care Provider] - See instructions Clinical Impressions Clinical Impression: Wheezing, , Allergic rhinitis Instructions Patient Instructions: DI for Allergic Rhinitis Discharge ED Provider: Cecy Anand [facility] HPI General Stated complaint: Cough,congested,wheezing Mode of Arrival: Ambulatory Source of Information: Patient Limitations: No Limitations Time Seen by Provider: 05/18/23 19:23 Description of Symptoms (Recalled from Triage Doc. by RN): PATIENT C/O PRODUCTIVE COUGH, WHEEZING AND CONGESTION X 2 DAYS HEENT Symptoms (Recalled from RN notes): Yes Resp Symptoms (Recalled from RN notes): Yes Skin Symptoms (Recalled from RN notes): No MS Symptoms (Recalled from RN notes): No Functional Status (Recalled from RN notes): WNL History of Present Illness Provider Complaint: Cough and congestion X 4 days. Thought was just allergies. Now is wheezing. Cough sometimes productive. Mild scratchy throat. No fever. Onset (ago): day(s) (4) Location: chest Relieving factors: none Exacerbating factors: none Associated symptoms: denies other symptoms Treatments prior to arrival: none Related Data Home Medications Medication Instructions Recorded Confirmed vits no.126-ferrous fum 1 tab PO DAILY 01/22/23 05/18/23 28 mg iron-folic acid 800 mcg tablet (Classic ) magnesium oxide 400 mg (241.3 mg 400 mg PO DAILY 02/23/23 05/18/23 magnesium) tablet Previous Rx's Medication Instructions Recorded promethazine 25 mg tablet 25 mg PO TID PRN nausea and 03/18/23 vomiting #20 tabs albuterol sulfate 90 mcg/actuation 2 puff inhalation QIDP PRN 05/18/23 aerosol inhaler (Ventolin HFA) Wheezing #1 ea cetirizine 10 mg tablet (Zyrtec) 10 mg PO DAILY PRN allergy 05/18/23 symptoms #30 tabs prednisone 20 mg tablet 20 mg PO BID #10 tabs 05/18/23 Allergies Allergy/AdvReac Type Severity Reaction Status Date / Time No Known Allergies Allergy Verified 05/07/23 09:31 Worker's Comp Is this a Worker's Comp case?: No PFSH [facility] Disclaimer: The information contained in this section may have been updated after the patient was seen, as this information can be updated by other users. Medical History Rubella non-immune status, antepartum Tobacco use affecting , antepartum Vaping nicotine dependence, tobacco product Migraines History of miscarriage, currently x 2 Surgical History History of laparoscopic cholecystectomy History of wisdom tooth extraction History of placement of ear tubes Family History Other Asthma FHx: mental illness Hypertension Social History Smoking Status: Current every day smoker tobacco type: e-cigarettes alcohol intake: never substance use type: denies use current occupational status: employed Travel in the last 8 weeks: None household members: significant other housing: house lives independently: Yes marital status: single education level: high school service: No caffeine: Yes special aurora needs: No do you feel safe at home: Yes victim of physical abuse: No victim of emotional abuse: No victim of sexual abuse: No would you like helpful sources: No ROS Obtained: Yes All systems reviewed & no additional complaints except as documented Respiratory Respiratory: Reports cough and Reports wheezing Allergic/Immunologic Allergic/Immunologic: Reports wheezing Physical Exam General General appearance: alert and in no apparent distress Head Head exam: atraumatic, normocephalic and normal inspection Eye Eye exam: Present normal appearance, PERRL and EOMI ENT ENT exam: Present normal exam, normal oropharynx, mucous membranes moist, TM's normal bilaterally and normal external ear exam Neck Neck exam: Present normal inspection, full ROM and trachea midline; Absent meningismus or lymphadenopathy Chest Chest inspection: Present normal inspection and symmetric chest wall rise; Absent tenderness Respiratory Respiratory exam: Present normal lung sounds bilaterally; Absent respiratory distress Cardiovascular Cardiovascular exam: Present regular rate and normal rhythm; Absent JVD Abdominal Exam Abdominal exam: Present soft and normal bowel sounds; Absent distention, tenderness or guarding Extremities Exam Extremities exam: Present normal inspection, full ROM and normal capillary refill; Absent calf tenderness Back Exam Back exam: Present normal inspection; Absent tenderness Neurological Exam Neurological exam: Present alert and oriented X3 Psychiatric Psychiatric exam: Present normal affect and normal mood Skin Skin exam: Present warm, dry, intact and normal color Lymphatic Lymphatic Findings: no adenopathy Medical Decision Making Peter Inquiry Pt receiving controlled substance: No Vital Signs: 05/18/23 19:15 Temperature 98.5 F Temperature Source Oral Pulse Rate [Left Brachial] 92 H Respiratory Rate 20 Blood Pressure [Left Arm] 135/90 Blood Pressure Mean [Left Arm] 105 Blood Pressure Source [Left Arm] Automatic Cuff Blood Pressure Position [Left Arm] Sitting 02 Sat by Pulse Oximetry 98 Oxygen Delivery Method Room Air
[2023-05-18 19:32] VITALS: BP 135/90; PULSE 92; RESP 20; TEMP 36.9; O2SAT 98
[2023-05-18] MEDS: methylPREDNISolone ACETATE 80MG/ML VIAL 80 MG IM (19:40)
== END 2023-05-18 19:52 | disposition home or self-care (01) ==
PROVIDERS: Emergency Provider Physician Assistant
DX: O26.899 Other specified pregnancy related conditions, unspecified trimester (principal); R06.2 Wheezing; J30.9 Allergic rhinitis, unspecified; R09.81 Nasal congestion; R05.9 Cough, unspecified; O99.330 Smoking (tobacco) complicating pregnancy, unspecified trimester; F17.290 Nicotine dependence, other tobacco product, uncomplicated; Z3A.00 Weeks of gestation of pregnancy not specified
CPT/HCPCS: 96372; 99212; 99214; G0463; J1040

== ENCOUNTER 2023-06-13 11:01 | Outpatient (CLI) | payer MEDICAID, SELFPAY ==
[2023-06-13 11:44] LABS: Basophils % 0.5 % (0.1-2.0); Eosinophils # 0.2 K/mm3 (0.0-0.4); Eosinophils % 2.3 % (0.1-12.0); Hematocrit 36.3 % (37.0-47.0); Hemoglobin 12.5 g/dL (12.2-16.2); Lymphocytes # 1.3 K/mm3 (0.7-4.5); Lymphocytes % 15.5 % (10-50); Mean Corpuscular HGB Conc 34.4 g/dL (31.8-35.4); Mean Corpuscular Hemoglobin 30.2 pg (27.0-31.2); Mean Corpuscular Volume 87.7 fl (81-99); Mean Platelet Volume 8.3 fl (7.4-10.4); Monocytes # 0.5 K/mm3 (0.1-1.0); Monocytes % 6.1 % (1.7-9.3); Neutrophils # 6.3 K/mm3 (1.8-7.8); Neutrophils % 75.7 % (37.0-80.0); Platelet Count 307 K/mm3 (142-424); Red Blood Count 4.15 M/mm3 (4.20-5.40); Red Cell Distribution Width 14.3 % (11.5-17.5); White Blood Count 8.3 K/mm3 (4.8-10.8)
[2023-06-13 12:04] LABS: Chloride 111 mmol/L (98-107); Potassium 3.4 mmoL/L (3.5-5.1); Sodium 138 mmol/L (136-145)
[2023-06-13 12:06] LABS: Blood Urea Nitrogen 5 mg/dl (7-17)
[2023-06-13 12:07] LABS: Alanine Aminotransferase 40 U/L (12-78); Albumin Level 3.3 g/dl (3.5-5.0); Albumin/Globulin Ratio 1.2 (1.1-1.8); Alkaline Phosphatase 137 U/L (38-126); Anion Gap 9.4 mEq/L (5-15); Aspartate Amino Transferase 32 U/L (14-36); Bilirubin,Total 0.5 mg/dl (0.2-1.3); Calcium 9.2 mg/dl (8.4-10.2); Carbon Dioxide 21 mmol/L (22.0-30.0); Estimated Glomerular Filt Rate 122 ml/min (>60); GFR (African American) 147 ML/MIN (>60); Globulin 2.8 g/dL (1.3-3.2); Glucose 104 mg/dl (74-100); Total Protein,Serum 6.1 g/dl (6.3-8.2)
[2023-06-13 13:15] LABS: Uric Acid 3.7 mg/dl (2.5-6.2)
== END 2023-06-13 23:59 | disposition home or self-care (01) ==
LOC: LAB 11:01
PROVIDERS: Visit Provider Obstetrics & Gynecology
DX: O26.893 Other specified pregnancy related conditions, third trimester (principal); Z3A.36 36 weeks gestation of pregnancy; B95.1 Streptococcus, group B, as the cause of diseases classified elsewhere
CPT/HCPCS: 36415; 80053; 84550; 85025; 86403

== ENCOUNTER 2023-06-15 22:02 | Outpatient (CLI) | payer MEDICAID, SELFPAY ==
[2023-06-15 22:10] VITALS: BMI 37.8
[2023-06-15 22:21] LABS: Microscopic, Urine URINE MICROSCOPIC (MICROSCOPIC)
[2023-06-15 22:23] LABS: Appearance,Urine CLEAR (Clear); Bilirubin,Urine Negative (Negative); Blood, Urine TRACE-I (Negative); Color,Urine YELLOW (Yellow); Glucose,Urine (UA) Negative (Negative); Ketones,Urine Negative (Negative); Leukocyte Esterase,Urine Negative (Negative); Nitrate,Urine Negative (Negative); PH,Urine 6.5 (5.0-8.5); Protein,Urine Negative (Negative); Specific Gravity, Urine <= 1.005 (1.005-1.030); Urobilinogen,Urine 0.2 EU/dl (0.2)
[2023-06-15 22:25] VITALS: BP 165/118
[2023-06-15 22:27] VITALS: BP 158/110
[2023-06-15 22:28] VITALS: BP 150/91; PULSE 77; RESP 17; TEMP 36.7; O2SAT 98; BMI 38.4
[2023-06-15 22:36] LABS: Barbiturates Screen,Urine Negative ng/ml (<200)
[2023-06-15 22:38] LABS: Amphetamine/Metha Screen,Urine Negative ng/ml (<1000)
[2023-06-15 22:39] VITALS: BP 148/100
[2023-06-15 22:39] LABS: Bacteria,Urine Trace /lpf; Cannabinoid Screen,Urine Negative ng/ml (<50); WBC,Urine Occasional #/hpf (0-3)
[2023-06-15 22:40] LABS: Cocaine Screen,Urine Negative ng/ml (<300)
[2023-06-15 22:41] LABS: Opiate Screen,Urine Negative ng/ml (<300); Phencyclidine Screen,Urine Negative ng/ml (<25)
[2023-06-15] MEDS: LABETALOL 100MG TABLET 100 MG PO (22:42)
[2023-06-15 22:46] LABS: Basophils # 0.1 K/mm3 (0-0.2); Basophils % 1.3 % (0.1-2.0); Eosinophils # 0.3 K/mm3 (0.0-0.4); Eosinophils % 3.2 % (0.1-12.0); Hemoglobin 11.4 g/dL (12.2-16.2); Lymphocytes # 1.5 K/mm3 (0.7-4.5); Lymphocytes % 18.7 % (10-50); Mean Corpuscular HGB Conc 33.5 g/dL (31.8-35.4); Mean Corpuscular Hemoglobin 29.5 pg (27.0-31.2); Mean Platelet Volume 8.4 fl (7.4-10.4); Monocytes # 0.7 K/mm3 (0.1-1.0); Monocytes % 8.7 % (1.7-9.3); Neutrophils # 5.4 K/mm3 (1.8-7.8); Neutrophils % 68.1 % (37.0-80.0); Platelet Count 316 K/mm3 (142-424); Red Blood Count 3.86 M/mm3 (4.20-5.40); Red Cell Distribution Width 14.4 % (11.5-17.5); White Blood Count 7.9 K/mm3 (4.8-10.8)
[2023-06-15 22:48] LABS: Methadone Screen,Urine Negative ng/ml (<300)
[2023-06-15 22:51] LABS: Chloride 111 mmol/L (98-107)
[2023-06-15 22:51] LABS: Benzodiazepines Screen,Urine Negative ng/ml (<200)
[2023-06-15 22:52] LABS: Potassium 3.2 mmoL/L (3.5-5.1); Sodium 138 mmol/L (136-145)
[2023-06-15 22:54] LABS: Alanine Aminotransferase 40 U/L (12-78); Albumin Level 3.2 g/dl (3.5-5.0); Albumin/Globulin Ratio 1.1 (1.1-1.8); Alkaline Phosphatase 124 U/L (38-126); Anion Gap 9.2 mEq/L (5-15); Aspartate Amino Transferase 31 U/L (14-36); Bilirubin,Total 0.5 mg/dl (0.2-1.3); Blood Urea Nitrogen 4 mg/dl (7-17); Carbon Dioxide 21 mmol/L (22.0-30.0); Creatinine Clearance Estimated 230 mL/min (50-200); Estimated Glomerular Filt Rate 122 ml/min (>60); GFR (African American) 147 ML/MIN (>60); Globulin 2.9 g/dL (1.3-3.2); Glucose 116 mg/dl (74-100); Total Protein,Serum 6.1 g/dl (6.3-8.2)
[2023-06-15 22:55] LABS: Calcium 9.7 mg/dl (8.4-10.2)
[2023-06-15 23:01] LABS: Activated Partial Thrombo Time 25.6 seconds (22.8-30.6); Fibrinogen 386 mg/dL (229.9-363.5); INR 0.94 (0.9-1.1); Prothrombin Time 10.2 seconds (10.1-12.5)
[2023-06-15 23:02] LABS: Creatinine,Urine Random 21 mg/dL (Not Estab.)
[2023-06-15 23:05] VITALS: BP 135/82
[2023-06-15 23:08] LABS: Uric Acid 3.7 mg/dl (2.5-6.2)
[2023-06-15 23:08] LABS: Microalbumin < 6.000 mg/L (0-16.7)
== END 2023-06-15 23:30 | disposition home or self-care (01) ==
LOC: OBOUT 22:03 → OB 22:04
PROVIDERS: Visit Provider Obstetrics & Gynecology
DX: O36.8130 Decreased fetal movements, third trimester, not applicable or unspecified (principal); Z3A.36 36 weeks gestation of pregnancy
CPT/HCPCS: 36415; 80053; 80307; 81001; 82043; 82570; 84550; 85025; 85384; 85610; 85730; G0463

== ENCOUNTER 2023-06-20 12:19 | Inpatient (IN) | payer MEDICAID, SELFPAY ==
[2023-06-20 12:34] VITALS: BP 135/86; PULSE 102; RESP 20; TEMP 36.7; O2SAT 96; BMI 36.9
[2023-06-20 12:36] VITALS: BMI 36.9
[2023-06-20 13:08] LABS: Basophils % 0.5 % (0.1-2.0); Eosinophils # 0.1 K/mm3 (0.0-0.4); Eosinophils % 1.5 % (0.1-12.0); Hematocrit 35.4 % (37.0-47.0); Lymphocytes # 1.3 K/mm3 (0.7-4.5); Lymphocytes % 17.8 % (10-50); Mean Corpuscular Hemoglobin 29.4 pg (27.0-31.2); Mean Corpuscular Volume 86.6 fl (81-99); Mean Platelet Volume 8.6 fl (7.4-10.4); Monocytes # 0.5 K/mm3 (0.1-1.0); Monocytes % 5.9 % (1.7-9.3); Neutrophils # 5.6 K/mm3 (1.8-7.8); Neutrophils % 74.3 % (37.0-80.0); Platelet Count 344 K/mm3 (142-424); Red Blood Count 4.09 M/mm3 (4.20-5.40); Red Cell Distribution Width 14.3 % (11.5-17.5); White Blood Count 7.5 K/mm3 (4.8-10.8)
[2023-06-20 13:19] LABS: Microscopic, Urine URINE MICROSCOPIC (MICROSCOPIC)
[2023-06-20 13:21] LABS: Appearance,Urine CLEAR (Clear); Blood, Urine Negative (Negative); Color,Urine YELLOW (Yellow); Glucose,Urine (UA) Negative (Negative); Ketones,Urine Negative (Negative); Leukocyte Esterase,Urine Negative (Negative); Nitrate,Urine Negative (Negative); PH,Urine 7.5 (5.0-8.5); Protein,Urine Negative (Negative); Urobilinogen,Urine 0.2 EU/dl (0.2)
[2023-06-20 13:36] LABS: Bilirubin,Urine 1+ (Negative)
[2023-06-20 13:37] LABS: Bacteria,Urine 1+ /lpf
[2023-06-20] MEDS: miSOPROStol 100MCG TABLET 50 MCG PO ×2 (13:50→20:06)
--- NOTE | 2023-06-20 18:25 | P.HP_ITS ---
OB - H&P: HPI Antepartum History of Present Illness Chief complaint: Scheduled induction of labor History of present illness: Ms Eliazar Lopez is a 27 yo at 37w1d by LMP and confirmed by first trimester ultrasound who presents to [facility] Labor and Delivery for scheduled induction of labor secondary to GHTN. She is taking Labetalol 200 mg PO BID. Diagnosis was made and Labetalol was started at 36 weeks. She transferred care to [facility] from [place] around 15 weeks of gestation. She has had good care. Denies headaches, vision changes, RUQ pain and swelling. Baby is active. No vaginal bleeding or leakage of fluid. complicated by vaping nicotine dependence and GHTN. History of Present Criteria for establishing EDC:: LMP confirmed by 1st trimester US care: good care Ultrasounds: normal mid trimester US Obstetrical complications: gestational hypertension Medical complications: none Labs Blood type: A (+) positive Rubella: nonimmune RPR/VDRL: nonreactive GBS status: positive HBsAG: negative PFSH [facility] Disclaimer: The information contained in this section may have been updated after the patient was seen, as this information can be updated by other users. Medical History (Updated 06/20/23 @ 18:37 by Radha Kim DO) 37 weeks gestation of GBS (group B Streptococcus carrier), +RV culture, currently Gestational hypertension Rubella non-immune status, antepartum Tobacco use affecting , antepartum Vaping nicotine dependence, tobacco product Migraines History of miscarriage, currently Surgical History History of laparoscopic cholecystectomy History of wisdom tooth extraction History of placement of ear tubes Family History Other Asthma FHx: mental illness Hypertension Social History (Updated 06/20/23 @ 12:53 by Vilma Kim RN) Smoking Status: Current every day smoker tobacco type: e-cigarettes alcohol intake: never substance use type: denies use current occupational status: employed Travel in the last 8 weeks: None household members: significant other housing: house lives independently: Yes marital status: single education level: high school service: No caffeine: Yes special aurora needs: No do you feel safe at home: Yes victim of physical abuse: No victim of emotional abuse: No victim of sexual abuse: No would you like helpful sources: No Review of Systems Review of Systems Review of systems:: pertinent systems reviewed and negative unless documented below Meds Home Medications and Allergies Home Medications Medication Instructions Recorded Confirmed Type vits no.126-ferrous fum 1 tab PO DAILY 01/22/23 06/20/23 History 28 mg iron-folic acid 800 mcg tablet (Classic ) magnesium oxide 400 mg (241.3 mg 400 mg PO DAILY 02/23/23 06/20/23 History magnesium) tablet promethazine 25 mg tablet 25 mg PO TID PRN nausea and 03/18/23 06/20/23 Rx vomiting #20 tabs albuterol sulfate 90 mcg/actuation 2 puff inhalation QIDP PRN 05/18/23 06/20/23 Rx aerosol inhaler (Ventolin HFA) Wheezing #1 ea cetirizine 10 mg tablet (Zyrtec) 10 mg PO DAILY PRN allergy 05/18/23 06/20/23 Rx symptoms #30 tabs labetalol 100 mg tablet 100 mg PO BID #60 tabs 06/13/23 06/20/23 Rx New Prescriptions to Start Prescriptions: Allergies Allergy/AdvReac Type Severity Reaction Status Date / Time No Known Allergies Allergy Verified 06/20/23 14:45 OB - H&P: Exam Physical Exam Vital signs: Temp Pulse Resp BP Pulse Ox O2 Del Method 98.1 F 102 H 20 135/86 96 Room Air 06/20/23 12:34 06/20/23 12:34 06/20/23 12:34 06/20/23 12:34 06/20/23 12:34 06/20/23 12:34 Constitutional no acute distress and cooperative Routine HEENT Exam Head: Present normocephalic and atraumatic Eye: Absent conjunctivae pink ENT: Present mucous membranes moist Routine Neck Exam Present full ROM Routine Respiratory Exam Present CTA bilaterally and normal respiratory effort Routine Cardiovascular Exam Present RRR Routine Abdominal Exam Present soft (Gravid); Absent tenderness Routine Rectal Exam Patient deferred: visual exam Routine Exam External: Present normal urethra appearance; Absent erythema, swelling, tenderness, lesions or lacerations Routine Extremities Exam Present full ROM; Absent edema or calf tenderness Routine Neurological Exam Present alert, moving all extremities and normal speech Routine Psychiatric Exam Present normal affect and cooperative Detailed Labor and Delivery Exam Dilation (cm): 1 Effacement (%): 50 Cervix position: mid station: -3 Consistency: soft Membranes: intact Baseline heart rate: 120 monitor accelerations: Present monitor decelerations: None penitentiary variability: Moderate (11-25) Contraction frequency (min): 2 Tachysystole: No OB - Results Labs Labs: Short CBC 06/20/23 Range/Units 12:56 WBC 7.5 (4.8-10.8) K/mm3 Hgb 12.0 L (12.2-16.2) g/dL Hct 35.4 L (37.0-47.0) % Plt Count 344 (142-424) K/mm3 Urine 06/20/23 Range/Units 12:30 Urine Color Yellow (Yellow) Urine Appearance Clear (Clear) Urine pH 7.5 (5.0-8.5) Ur Specific [place] 1.020 (1.005-1.030) Urine Protein Negative (Negative) Urine Glucose (UA) Negative (Negative) OB - A/P Antepartum (1) 37 weeks gestation of : Status: Acute (2) Gestational hypertension: Status: Acute (3) Vaping nicotine dependence, tobacco product: Status: Acute (4) GBS (group B Streptococcus carrier), +RV culture, currently : Status: Acute (5) Rubella non-immune status, antepartum: Status: Acute (6) History of miscarriage, currently : Problem details: x 2 Status: Acute Additional Plan Planning to breastfeed?: Yes Plan: induction Additional Information:: Admit to [facility] L&D for scheduled induction of labor Induction with Cytotec followed by Pitocin Continue Labetalol 200 mg PO BID GBS positive. Ampicillin for GBS prophylaxis Close monitoring
[2023-06-20 18:42] LABS: Benzodiazepines Screen,Urine Negative ng/ml (<200)
[2023-06-20 18:43] LABS: Amphetamine/Metha Screen,Urine Negative ng/ml (<1000); Barbiturates Screen,Urine Negative ng/ml (<200)
[2023-06-20 18:44] LABS: Cannabinoid Screen,Urine Negative ng/ml (<50)
[2023-06-20 18:45] LABS: Cocaine Screen,Urine Negative ng/ml (<300); Methadone Screen,Urine Negative ng/ml (<300)
[2023-06-20 18:47] LABS: Opiate Screen,Urine Negative ng/ml (<300)
[2023-06-20 18:48] LABS: Phencyclidine Screen,Urine Negative ng/ml (<25)
[2023-06-20] MEDS: LABETALOL 100MG TABLET 200 MG PO (20:01)
[2023-06-20] MEDS: BUTORPHANOL TARTRATE 1 MG/ML VIAL IV ×2 (20:57→23:11)
[2023-06-20] MEDS: AMPICILLIN SODIUM 2 GM in 0.9 % SODIUM CHLORIDE 100 ML IV (23:04)
[2023-06-21] MEDS: LACTATED RINGERS 1000ML 1,000 ML 250 ML IV (00:25)
--- NOTE | 2023-06-21 01:47 | EXP.ANES.CKL ---
[facility] Disclaimer: The information contained in this section may have been updated after the patient was seen, as this information can be updated by other users. Medical History (Updated 06/20/23 @ 18:37 by Radha Kim DO) 37 weeks gestation of GBS (group B Streptococcus carrier), +RV culture, currently Gestational hypertension Rubella non-immune status, antepartum Tobacco use affecting , antepartum Vaping nicotine dependence, tobacco product Migraines History of miscarriage, currently Surgical History History of laparoscopic cholecystectomy History of wisdom tooth extraction History of placement of ear tubes Family History Other Asthma FHx: mental illness Hypertension Social History (Updated 06/20/23 @ 12:53 by Vilma Kim RN) Smoking Status: Current every day smoker tobacco type: e-cigarettes alcohol intake: never substance use type: denies use current occupational status: employed Travel in the last 8 weeks: None household members: significant other housing: house lives independently: Yes marital status: single education level: high school service: No caffeine: Yes special aurora needs: No do you feel safe at home: Yes victim of physical abuse: No victim of emotional abuse: No victim of sexual abuse: No would you like helpful sources: No [facility] Anesthesia Checklist Patient Identification Patient Identification: Arm Band and Verbal (Name & ) Structural Data Admitted From: Inpatient ([id number]) Planned Operative Procedure/s: Labor epidural Consent for Planned Operative Procedure(s) Verified: Yes Verified Documents: Surgical Consent and History and Physical NPO Status Verified Time NPO: 19:00 Chart Verification Results Verified: CBC and BMP Additional verifications Patient : Yes (37 2/7 wk IUP) Anesthesia Reactions: No Hx Blood Transfusions: No Blood Transfusion Reaction: No Cardiovascular Assessment Heart Sounds: S1 & S2 Pulse Rhythm: Irregular Peripheral Edema: Yes (2+ CELY LE) Airway Assessment Mallampati Score:: Class II C-Spine Mobility Assessed: Yes (FROM) TMJ Mobility Assessed: Yes Dentition: Good Dentition (Nothing loose per pt.) Neurological Assessment Level of Consciousness: Awake, Alert, Appropriate and Follows Commands Hx Seizures: No Numbness or tingling in extremities: No Anesthesia Plan Anesthesia Risk discussed: Yes Anesthesia Plan: Verified ASA Class: II Anesthesia Type: Epidural
--- NOTE | 2023-06-21 01:49 | P.PN_ITS ---
Subjective *Date: 06/21/23 *Time: 01:49 Interval history: Procedure Note Labor Epidural Position: Sitting Prep: Betadine x3 Level: L3-4 Local to Skin: Lido 1% x 3mL IDALMIS: to air @ 8cm CSF: NEGATIVE; Heme: NEGATIVE; Parasthesia: NEGATIVE Test dose: NEGATIVE w/Lido 1.5% w/Epi 1:200,000 x 5mL Catheter: Secured 15 cm @ skin Bolus: Ropivicaine 0.2% x9mL w/ Fentanyl 50mcg Epidural RECREATION [employer]ID[employer] TE[employer]ER: started @ 12mL/hr. Tolerated procedure well. Exam Data for Last 24 hours Vital signs and Labs for Last 24 Hours: Temp Pulse Resp BP Pulse Ox O2 Del Method 98.1 F 102 H 20 135/86 96 Room Air 06/20/23 12:34 06/20/23 12:34 06/20/23 12:34 06/20/23 12:34 06/20/23 12:34 06/20/23 12:34 Laboratory Results - last 24 hr 06/20/23 12:30: Urine Color Yellow, Urine Appearance Clear, Urine pH 7.5, Ur Specific [place] 1.020, Urine Protein Negative, Urine Glucose (UA) Negative, Urine Ketones Negative, Urine Blood Negative, Urine Nitrate Negative, Urine Bilirubin 1+ A, Urine Urobilinogen 0.2, Ur Leukocyte Esterase Negative, Urine RBC 3-5, Urine WBC None, Ur Squamous Epith Cells 5-10, Urine Bacteria 1+, Urine Opiates Screen Negative, Urine Methadone Screen Negative, Ur Barbituates Screen Negative, Ur Phencyclidine Scrn Negative, Ur Amphetamines Screen Negative, U Benzodiazepines Scrn Negative, Urine Cocaine Screen Negative, U Marijuana (THC) Screen Negative 06/20/23 12:56: WBC 7.5, RBC 4.09 L, Hgb 12.0 L, Hct 35.4 L, MCV 86.6, MCH 29.4, MCHC 34.0, RDW 14.3, Plt Count 344, MPV 8.6, Neut % (Auto) 74.3, Lymph % (Auto) 17.8, [place] % (Auto) 5.9, Eos % (Auto) 1.5, Baso % (Auto) 0.5, Neut # (Auto) 5.6, Lymph # (Auto) 1.3, [place] # (Auto) 0.5, Eos # (Auto) 0.1, Baso # (Auto) 0.0, Blood Type A Positive, Antibody Screen Negative, Crossmatch (AHG) See Detail I & O for Last 24 hours: Intake & Output 06/18/23 06/19/23 06/20/23 06/21/23 23:59 23:59 23:59 23:59 Weight 100.698 kg
[2023-06-21 03:25] LABS: Microscopic,Cath URINE MICROSCOPIC (MICROSCOPIC)
[2023-06-21 03:27] LABS: Blood, Urine/Cath 3+ (Negative); Color,Urine/Cath YELLOW (Yellow); Glucose,Urine/Cath (UA) Negative (Negative); Ketones,Urine/Cath 2+ (Negative); Leukocyte Esterase,Cath Negative (Negative); Nitrate,Cath Negative (Negative); Protein,Urine/Cath TRACE (Negative); Specific Gravity, Urine/Cath 1.025 (1.005-1.030)
[2023-06-21 03:28] LABS: Bilirubin,Cath 2+ (Negative)
[2023-06-21 03:29] LABS: Appearance,Urine/Cath Cloudy (Clear)
[2023-06-21 03:40] LABS: Bacteria,Urine/Cath 1+ /lpf; Squamous Epithelial Ur./Cath Occasional #/hpf (0-5); WBC,Urine/Cath Occasional #/hpf (0-3)
[2023-06-21 03:41] LABS: Mucus,Urine/Cath 1+ /lpf
[2023-06-21] MEDS: DEXTROSE 5%-LACTATED RINGERS 1,000 ML 125 ML IV (03:45)
[2023-06-21] MEDS: AMPICILLIN SODIUM 1 GM in 0.9 % SODIUM CHLORIDE 50 ML IV ×2 (03:46→08:19)
[2023-06-21] MEDS: OXYTOCIN/RINGERS LACTATE 30 UNITS/500 ML BAG IV (05:38)
[2023-06-21] MEDS: ONDANSETRON 4MG/2ML VIAL 4 MG IV (07:36)
--- NOTE | 2023-06-21 07:43 | HMH.PHAINT1 ---
Pharmacy Intervention Comments: MEDICATION RECONCILIATION COMPLETE USING LIST FROM MOST RECENT OB OFFICE VISIT AND EXTERNAL PHARMACY FILL HISTORY.
[2023-06-21] MEDS: LABETALOL 100MG TABLET 200 MG PO ×2 (08:19→20:41)
[2023-06-21] MEDS: OXYTOCIN/RINGERS LACTATE 30 UNITS/500 ML BAG 40 UNITS IV (09:36)
--- NOTE | 2023-06-21 10:00 | EXP.DN ---
Delivery Note Delivery Date:: 06/21/23 Delivery Time:: 09:32 Anesthesia Type: Epidural Was labor medically induced?: Yes Induction method: per misoprostol protocol Gestational age (weeks): 37 Infant delivered prior to 39 weeks?: Yes Justification for early elective delivery:: Gestational Hypertension Gender: Female at 1 minute: 6 at 5 minutes: 9 Delivery Procedure:: Mom complete with epidural. Pushed for approximately 30 minutes. Head delivered spontaneously over intact perineum in HEENA position. Shoulder dystocia recognized and relieved within 30 seconds with Chaparro maneuver and suprapubic pressure. No nuchal cord. Anterior shoulder delivered with gentle downward pressure and mentioned maneuvers. Posterior shoulder and remainder of body delivered spontaneously. Baby placed on maternal abdomen, mouth and nares bulb suctioned, warmed/dried and stimulated. Delayed cord clamping was performed for 60 seconds. Cord was clamped and cut by grandmother of baby. Cord blood was obtained. Placenta delivered spontaneously and intact. Placenta will be sent to pathology for review. Bilateral labial lacerations noted. Right labial laceration repaired with 3-0 Vicryl. Hemostasis noted. Left labial laceration hemostatic. Mom and baby were skin to skin and doing well after delivery. Live female baby (baby's name is [place]) APGARs 6 (1 min), 9 (5 min) EBL 100 mL Laceration:: labial Placental Delivery Description: Spontaneous
[2023-06-21] MEDS: WITCH HAZEL 40 PADS/BOX 1 EACH TP (13:04)
[2023-06-21] MEDS: BENZOCAINE-MENTHOL SPRAY 56GM CAN TP (13:04)
[2023-06-21] MEDS: PRENATAL MULTIVITAMIN W/IRON 1 EACH PO (16:53)
[2023-06-21 19:48] VITALS: BP 138/67; PULSE 77; RESP 16; TEMP 37
[2023-06-21] MEDS: ACETAMINOPHEN 500MG TAB 1000 MG PO (20:42)
[2023-06-22 00:09] VITALS: BP 127/75; PULSE 63; RESP 17; TEMP 36.9; O2SAT 94
[2023-06-22 04:35] VITALS: BP 109/70; PULSE 63; RESP 16; TEMP 36.8
[2023-06-22 07:29] LABS: Basophils % 0.4 % (0.1-2.0); Eosinophils # 0.2 K/mm3 (0.0-0.4); Eosinophils % 1.7 % (0.1-12.0); Hemoglobin 11.3 g/dL (12.2-16.2); Lymphocytes # 1.9 K/mm3 (0.7-4.5); Lymphocytes % 19.2 % (10-50); Mean Corpuscular HGB Conc 33.4 g/dL (31.8-35.4); Mean Corpuscular Hemoglobin 29.6 pg (27.0-31.2); Mean Corpuscular Volume 88.7 fl (81-99); Mean Platelet Volume 8.1 fl (7.4-10.4); Monocytes # 0.6 K/mm3 (0.1-1.0); Monocytes % 5.9 % (1.7-9.3); Neutrophils # 7.1 K/mm3 (1.8-7.8); Neutrophils % 72.9 % (37.0-80.0); Platelet Count 303 K/mm3 (142-424); Red Blood Count 3.83 M/mm3 (4.20-5.40); Red Cell Distribution Width 14.5 % (11.5-17.5); White Blood Count 9.7 K/mm3 (4.8-10.8)
[2023-06-22 07:46] VITALS: BP 138/86; PULSE 83; RESP 18; TEMP 37.1; O2SAT 99
[2023-06-22] MEDS: LABETALOL 100MG TABLET 200 MG PO (10:02)
--- NOTE | 2023-06-22 11:04 | P.DS_ITS ---
General Admission date:: 06/20/23 Discharge date: 06/22/23 HPI HPI HPI: PPD # 1 s/p Feeling well. Pain controlled. Breast feeding. Lochia is appropriate. Voiding without difficulty and passing flatus. Tolerating regular diet. Denies fever/chills, chest pain and shortness of breath. No headaches, vision changes, lightheadedness/dizziness. No lower extremity swelling. Ambulating well ad rachid. Hospital Course Hospital Course Hospital Course: Ms Eliazar Lopez is a 27 yo at 37w1d by LMP and confirmed by first trimester ultrasound who presents to [facility] Labor and Delivery for scheduled induction of labor secondary to GHTN. She is taking Labetalol 200 mg PO BID. Diagnosis was made and Labetalol was started at 36 weeks. She transferred care to [facility] from [place] around 15 weeks of gestation. She has had good care. Denies headaches, vision changes, RUQ pain and swelling. Baby is active. No vaginal bleeding or leakage of fluid. complicated by vaping nicotine dependence and GHTN. She had a normal spontaneous vaginal delivery on 06/21/23 at 0932. She had a live female baby, [place], weighing 6 lb 6 oz. APGARs 6 (1 min), 9 (5 min). EBL 100 mL She did well /postoperatively. Pain controlled. Formula feeding. Lochia appropriate. Voiding without difficulty and passing flatus. Tolerating regular diet. Denies fever/chills, chest pain and shortness of breath. No headaches, dizziness/lightheadedness or vision changes. Vital signs stable, afebrile. Heart regular rate and rhythm. Lungs clear to auscultation. Abdomen soft, nontender. She had +1 bilateral lower extremity edema. No calf tenderness to palpation. Ambulating well ad rachid. Normal hospital course. She was discharged to home on POD # 1 with instructions to follow-up in the office in 2 weeks or sooner if needed. Exam Data for Last 24 hours Vital signs and Labs for Last 24 Hours: Temp Pulse Resp BP Pulse Ox O2 Del Method 98.7 F 83 18 138/86 99 Room Air 06/22/23 07:46 06/22/23 07:46 06/22/23 07:46 06/22/23 07:46 06/22/23 07:46 06/22/23 07:46 Laboratory Results - last 24 hr 06/22/23 06:06: WBC 9.7 D, RBC 3.83 L, Hgb 11.3 L, Hct 34.0 L, MCV 88.7, MCH 29.6, MCHC 33.4, RDW 14.5, Plt Count 303, MPV 8.1, Neut % (Auto) 72.9, Lymph % (Auto) 19.2, [place] % (Auto) 5.9, Eos % (Auto) 1.7, Baso % (Auto) 0.4, Neut # (Auto) 7.1, Lymph # (Auto) 1.9, [place] # (Auto) 0.6, Eos # (Auto) 0.2, Baso # (Auto) 0.0 I & O for Last 24 hours: Intake & Output 06/19/23 06/20/23 06/21/23 06/22/23 23:59 23:59 23:59 23:59 Output Total 950 / 950 Balance -950 / -950 Weight 222 lb Constitutional Constitutional: no acute distress and cooperative *Routine HEENT Exam Head: Present normocephalic and atraumatic Eye: Absent conjunctivae pink ENT: Present mucous membranes moist *Routine Neck Exam Neck: Present full ROM *Routine Respiratory Exam Respiratory: Present CTA bilaterally and normal respiratory effort *Routine Cardiovascular Exam Cardiovascular: Present RRR *Routine Abdominal Exam Abdominal: Present soft and normoactive bowel sounds; Absent tenderness or distended Comments: Uterine fundus firm and below umbilicus *Routine Rectal Exam Patient deferred: visual exam *Routine Exam Patient deferred: external exam *Routine Extremities Exam Extremities: Present edema (+1 bilateral lower extremity edema) and full ROM; Absent calf tenderness *Routine Neurological Exam Neurological: Present alert, moving all extremities and normal speech Routine Psychiatric Exam Psychiatric: Present normal affect and cooperative Results Data Completed and Pending Labs on day of discharge: Labs from last 24 hours 06/22/23 06:06 WBC 9.7 D RBC 3.83 L Hgb 11.3 L Hct 34.0 L MCV 88.7 MCH 29.6 MCHC 33.4 RDW 14.5 Plt Count 303 MPV 8.1 Neut % (Auto) 72.9 Lymph % (Auto) 19.2 [place] % (Auto) 5.9 Eos % (Auto) 1.7 Baso % (Auto) 0.4 Neut # (Auto) 7.1 Lymph # (Auto) 1.9 [place] # (Auto) 0.6 Eos # (Auto) 0.2 Baso # (Auto) 0.0 DS: Diagnosis Discharge Diagnosis (1) Status post vaginal delivery: Status: Acute (2) 37 weeks gestation of : Status: Acute Code(s): Z3A.37 - 37 weeks gestation of (3) Gestational hypertension: Status: Acute Code(s): O13.9 - Gestational [-induced] hypertension without significant proteinuria, unspecified trimester Qualifiers: Trimester: third trimester Qualified Code(s): O13.3 - Gestational [-induced] hypertension without significant proteinuria, third trimester (4) Vaping nicotine dependence, tobacco product: Status: Acute Code(s): F17.290 - Nicotine dependence, other tobacco product, uncomplicated (5) GBS (group B Streptococcus carrier), +RV culture, currently : Status: Acute Code(s): O99.820 - Streptococcus B carrier state complicating (6) Rubella non-immune status, antepartum: Status: Acute Code(s): O09.899 - Supervision of other high risk pregnancies, unspecified trimester; Z28.39 - Other underimmunization status (7) History of miscarriage, currently : Status: Acute Code(s): O09.299 - Supervision of with other poor reproductive or obstetric history, unspecified trimester Problem details: x 2 Meds Home Medications and Allergies Home Medications Medication Instructions Recorded Confirmed Type vits no.126-ferrous fum 1 tab PO DAILY 01/22/23 06/20/23 History 28 mg iron-folic acid 800 mcg tablet (Classic ) magnesium oxide 400 mg (241.3 mg 400 mg PO DAILY 02/23/23 06/20/23 History magnesium) tablet albuterol sulfate 90 mcg/actuation 2 puff inhalation QIDP PRN 05/18/23 06/20/23 Rx aerosol inhaler (Ventolin HFA) Wheezing #1 ea cetirizine 10 mg tablet (Zyrtec) 10 mg PO DAILYP PRN Allergy 06/21/23 06/21/23 History Symptoms promethazine 25 mg tablet 25 mg PO TIDP PRN Nausea And 06/21/23 06/21/23 History Vomiting ibuprofen 800 mg tablet 800 mg PO Q8H PRN pain #20 tabs 06/22/23 Rx labetalol 100 mg tablet 200 mg (2 x 100 mg) PO Q12H #120 06/22/23 Rx tabs polyethylene glycol 3350 17 17 g PO BID PRN constipation #119 06/22/23 Rx gram/dose oral powder (Miralax) grams New Prescriptions to Start Prescriptions: ibuprofen Radha Kim labetalol Radha Kim polyethylene glycol 3350 [Miralax] Radha Kim Allergies Allergy/AdvReac Type Severity Reaction Status Date / Time No Known Allergies Allergy Verified 06/20/23 14:45 Discharge Plan Disposition Patient Disposition: Home, Self-Care Condition: Good Discharge Order Discharge Orders: Discharge Order (Routine); Ordered 06/22/23 Ordered By: Radha Kim Follow up Plan Follow up with: Radha Kim DO [Staff Physician] - 07/10/23 1:15 pm Prescriptions/Medication Reconciliation: New labetalol 100 mg Tablet 200 mg PO Q12H Qty: 120 0RF ibuprofen 800 mg tablet 800 mg PO Q8H PRN (Reason: pain) Qty: 20 0RF polyethylene glycol 3350 [Miralax] 17 gram/dose powder 17 g PO BID PRN (Reason: constipation) Qty: 119 0RF Continued magnesium oxide 400 mg (241.3 mg magnesium) tablet 400 mg PO DAILY Classic 28 mg iron- 800 mcg tablet 1 tab PO DAILY albuterol sulfate [Ventolin HFA] 90 mcg/actuation HFA aerosol inhaler 2 puff inhalation QIDP PRN (Reason: Wheezing) Qty: 1 0RF cetirizine [Zyrtec] 10 mg tablet 10 mg PO DAILYP PRN (Reason: Allergy Symptoms) promethazine 25 mg tablet 25 mg PO TIDP PRN (Reason: Nausea And Vomiting) Discontinued labetalol 100 mg tablet 100 mg PO BID Qty: 60 1RF Problem Reconciliation Problems Reviewed?: Yes Patient Discharge Instructions ACTIVITY: Limited activity DIET: continue same diet and regular diet Additional Instructions: Discharge: 1. Take 800 mg Ibuprofen every 8 hours as needed for pain. You can also take 500-1000 mg of Tylenol in between doses, every 6-8 hours. 2. Nothing in the vagina for 6 weeks - no intercourse, douching or tampons. No tub baths/hot tubs or swimming pools 3. Reasons to return to L&D or call On-Call doctor - fever (greater than 100.4) - heavy vaginal bleeding (soaking through 1 pad in less than 2 hours) - vaginal discharge (malodorous and/or purulent) - severe headaches not resolved by medication or rest and leg tenderness/edema 4. depression/blues - Normal to feel anxious/overwhelmed for first 2 weeks - Talk to your doctor if: severe anxiety, trouble bonding with baby, withdrawing from other family members, thoughts of harming yourself or others Radha Kim DO [facility] [phone] Patient Instructions: Depression, Hemorrhage, DI for Labor and Delivery, Vaginal , DI for Pre-eclampsia, [facility] Post Discharge Instructions Providers Primary Care Provider: Provider,Referral Admit Provider: Radha Kim Attending Provider: Radha Kim
== END 2023-06-22 14:05 | disposition home or self-care (01) | DRG 807 ==
PROVIDERS: Admitting Provider Obstetrics & Gynecology; Visit Provider Obstetrics & Gynecology
DX: O99.824 Streptococcus B carrier state complicating childbirth (principal); Z37.0 Single live birth; Z3A.37 37 weeks gestation of pregnancy; O99.334 Smoking (tobacco) complicating childbirth; F17.290 Nicotine dependence, other tobacco product, uncomplicated; O13.4 Gestational [pregnancy-induced] hypertension without significant proteinuria, complicating childbirth; O70.0 First degree perineal laceration during delivery
CPT/HCPCS: 59409; 36415; 59025; 80307; 81001; 85025; 86850; 94761; G0283; J0290; J0595; J2405

== ENCOUNTER 2024-05-12 14:30 | Outpatient (CLI) | payer MEDICAID, SELFPAY ==
--- NOTE | 2024-05-12 14:47 | US_ITS ---
PROCEDURE: US TRANSVAGINAL CLINICAL INDICATION: bleeding after intercourse COMPARISON: CT CT ABDOMEN PELVIS W CON from 07/23/2022 FINDINGS: Transvaginal sonographic images of the pelvis were obtained. UTERUS: 7.7 cm x 4.8 cmx 3.9 cm anteverted with a combined endometrial thickness of 4.2mm. There is an IUD within the uterine cavity in the correct position. LEFT OVARY: 3.0cmx1.8 cmx2.1cm with a volume of 6ml. There are multiple small follicles. RIGHT OVARY: 3.9 cmx 3.4cmx3.0cm with a volume of 21.1ml. There are multiple small follicles. There is a dominant follicle measuring 1.9 cm x 2.0 cm x 2.0 cm. Both ovaries are seen and appear normal. Doppler flow to both ovaries are seen. There is no fluid in the cul-de-sac. IMPRESSION: 1. Anteverted uterus normal in shape and size. The endometrium appears thin. 2. There is an IUD in the correct position within the uterine cavity. 3. Both ovaries are seen and have multiple small follicles. The right ovary has a dominant follicle measuring 2 cm. 4. No fluid in the cul-de-sac. Dictated by: Mario Jang MD 05/12/2024 16:03 Mario Jang MD in OV 05/12/2024 16:03
== END 2024-05-12 23:59 | disposition home or self-care (01) ==
LOC: RAD 14:30
PROVIDERS: PCP Nurse Practitioner Family; Visit Provider Obstetrics & Gynecology
DX: N93.0 Postcoital and contact bleeding (principal)
CPT/HCPCS: 76830

== ENCOUNTER 2024-10-16 15:17 | Outpatient (CLI) | payer MEDICAID, SELFPAY ==
--- OUTSIDE RECORDS SUMMARY | 2022-06-08 08:22 | XMS_ITS | Encounter Summary ---
Author Organization [facility] Address [address] [place] [address] Care Team Providers Care Scrap Picker Name Role Phone Provider, No Known Primary Care Provider Unavail able Reason for Referral * Diagnostic Imaging (Routine) - Canceled Specialty Diagnoses / Procedures Referred By Phillip t Referred To Contact Radiology Diagnoses Secondary oligomenorrhea Procedures US Non-ob Transvaginal Ari Blackwood CNM [address] [facility] [address] [place] [address] Phone: tel: fax: [facility] Phone: tel: Referral ID Status Reason Start Date Expiration Date V isits Requested Visits Authorized [id number] Canceled 02/06/2022 02/06/2023 1 1 Reason for Visit * Diagnostic Imaging (Routine) - Canceled Specialty Diagnoses / Procedures Referred By Contac t Referred To Contact Radiology Diagnoses Secondary oligomenorrhea Procedures US Non-ob Transvaginal Ari Blackwood CNM [address] [facility] [address] [place] [address] Phone: tel: fax: [facility] Phone: tel: Referral ID Status Reason Start Date Expiration Date V isits Requested Visits Authorized [id number] Canceled 02/06/2022 02/06/2023 1 1 Encounter Details Date Type Department Care Team (Latest Contact Info) Description 06/08/2022 8:22 AM EDT Hospital Encounter [facility] [place] [phone] Secondary oligomenorrhea Social History Tobacco Use Types [...] EDT PAT NAME: PAULINA SHEARER MED REC#: [id number] DA: [id number] PAT GEND: F PAT TYPE: O EXAM JOHNNY: [id number] REF PHYS ARI BLACKWOOD Indication ======== oligomenorrhea [...] ovaries bilaterally Recommendation Follow-up as clinically indicated. Blending Operator: Radha Garber RDMS Physician: Humza Sanders MD Electronically signed by: Humza Sanders MD at: 16:31 Procedure Note Humza Sanders MD - 06/09/2022 PAT NAME: PAULINA SHEARER MED REC#: [id number] DA: [id number] PAT GEND: F PAT TYPE: O EXAM JOHNNY: [id number] REF PHYS ARI BLACKWOOD Indication ======== oligomenorrhea [...] Vol29.6 cm Endometrial thickness, total5.1 mm Cervical ydawuw68.4 mm Right Ovary Rt ovary:Normal Rt ovary [...] ovaries bilaterally Recommendation Follow-up as clinically indicated. Blending Operator: Radha Garber RDMS Physician: Humza Sanders MD Electronically signed by: Humza Sanders MD at: 16:31 Ari Blackwood [facility] ORDERABLES Final Resul t documented in this encounter Visit Diagnoses Diagnosis Secondary oligomenorrhea Scanty or infrequent menstruation documented in this encounter Additional Health Concerns Infection Onset Date Last Indicated Resolved Time COVID (confirmed) 03/03/2021 03/03/2021 06/08/2022 9:08 PM EDT documented as of this encounter Care Teams Scrap Picker Relationship Specialty Start Date End Date Provider, No Known [facility] [place] [address] PCP - General 12/21/14 documented as of this encounter
--- OUTSIDE RECORDS SUMMARY | 2024-10-16 15:21 | XMS_ITS | Clinical Summary ---
Author Organization [facility] Address [address] [place] [address] Care Team Providers Care Consulting Psychiatrist Name Role Phone Provider, No Known Primary Care Provider Unavail able Allergies No known active allergies Medications Magnesium Oxide -Mg Supplement (MAGnesium-Oxide ) 400 (240 Mg) MG tablet Take 1 tablet by mouth Daily. 02/23/2023 Active Jgycvkhi-Ayq-Ui- FA ( 1 + IRON PO) 1 tablet. With folic acid 01/22/2023 Active Active Problems Problem Noted Date Diagnosed Date Rubella non-immune status, antepartum 12/26/2022 PCOS (polycystic ovarian syndrome) 12/25/2022 Encounter for supervision of normal first in first trimester 12/25/2022 Overview (01/01/2023): Unsure of paternity gender: Girl classes discussed: Circumcision (y / n / na): [employer] Supervisor: Baby's name: Breast/bottle feeding: Placental location: Postdates discussed: Tdap discussed: Tdap vaccine received: Flu vaccine discussed: Flu vaccine received: PPBC: Genetic screening: Low risk female FOB name: Well woman exam with routine gynecological exam 02/06/2022 Overview (02/06/2022): SCREENING TESTS Year 2017 2018 2019 2019 2020 2021 2022 2023 2024 2025 2026 2027 2028 2029 2030 2031 2032 Age 26 PAP 12 HPV high risk LUCIA [Birads] JENNIFER (5 year) Cyndi Anderson (lifetime) Colonoscopy DEXA [T-score] Frax [hip/any] Enter the month test was performed. If month not known, enter X' Black numbers = normal results Red numbers = abnormal results Black X = patient reported normal Red X - patient reported abnormal Referred by: Profession: Other info: Resolved Problems Problem Noted Date Diagnosed Date Resolved Date PCOS (polycystic ovarian syndrome) 06/08/2022 12/25/2022 Immunizations Immunization Administration Dates Next Due COVID-19 (MODERNA) 1st,2nd,3rd Dose Monovalent 0 07/09/2020,06/08/2020 Fluzone (or Fluarix & Flulaval for VFC) >6mos ,06/04/2019 Hepatitis A 08/10/2018,02/08/2018 Family History Medical History Relation Name Comments No Known Problems Brother No Known Problems Father No Known Problems Mother No Known Problems Sister Breast cancer Neg Hx Colon cancer Neg Hx Ovarian cancer Neg Hx Pancreatic cancer Neg Hx Prostate cancer Neg Hx Relation Name Status Comments Brother Alive Father Alive Mother Alive Sister Alive Social History Tobacco Use Types Packs/Day Years [...] e 11/27/2022 Family and Community Support Answer Ernst e Recorded Help with Day-to-Day Activities Not [...] on file Sexual Orientation Not on file Last Filed Vital Signs Vital Sign Reading Time Taken Comments Blood Pressure 113/67 04/02/2023 10:56 AM EST Pulse 98 01/26/2017 4:08 PM EST Temperature 36.5 C (97.7 F) 01/26/2017 4:08 PM EST Respiratory Rate 16 01/26/2017 4:08 PM EST Oxygen Saturation 97% 01/26/2017 4:08 PM EST Inhaled Oxygen Concentration - - Weight 93.4 kg (205 lb 12.8 oz) 024 10:56 AM EST Height 165.1 cm (5' 5 ) 04/02/2023 10:5 8 AM EST Body Mass Index 34.25 04/02/2023 10:56 AM EST Plan of Treatment Health Maintenance Due Date Last Done Comments HPV VACCINES (1 - 3-dose series) 2012 ANNUAL PHYSICAL 07/10/2016 TDAP/TD VACCINES (1 - Tdap) 2016 Annual Gynecologic Pelvic and Breast Exam 02/07/2023 02/06/2022 COVID-19 Vaccine ( season) 2023 07/09/2020, 06/08/2020 INFLUENZA VACCINE 11/19/2024 12/25/2022, 06/04/2019 CHLAMYDIA SCREENING Discontinued 12/25/2022, 12/25/2022 HEPATITIS C SCREENING Completed 12/25/2022 Pneumococcal Vaccine 0-49 Aged Out No longer eligible based on patient's age to complete this topic Procedures Procedure Name Priority Date/Time Associated Diagnosis Comments HEPATITIS C ANTIBODY Routine 12/25/2022 11:08 AM EST Encounter for supervision of normal first in first trimester CHLAMYDIA TRACHOMATIS, NEISSERIA GONORRHOEAE, TRICHOMONAS VAGINALIS, PCR Routine 12/25/2022 Encounter for supervision of normal first in first trimester from Last 3 Months or Most Recently Relevant to Health Maintenance Results * Hepatitis C Antibody (12/25/2022 11:08 AM EST) Hepatitis C Ab Non-Reacti ve Non-Reacti ve 12/25/2022 3:10 PM EST [facility] Blood Venipuncture / Unknown 12/25/2022 11:08 AM EST 12/25/2022 11:10 AM EST Narrative [facility] - 12/25/2022 3:10 PM EST Results may be falsely decreased if patient taking Biotin. Daphne Calero MD LAB BLOOD ORDERABLES Final R esult [facility]
[address] [place] [address], * Chlamydia trachomatis, Neisseria gonorrhoeae, Trichomonas vaginalis, PCR - Swab, Cervix (12/25/2022) Swab Cervix uteri structure / Unknown Daphne Calero MD MICROBIOLOGY - GENERAL ORDER NETTE Final Result [facility] [address] [place] [address] from Last 3 Months or Most Recently Relevant to Health Maintenance Insurance [facility] MEDICAID Care Teams Consulting Psychiatrist Relationship Specialty Start Date End Date Provider, [place] [address] PCP - General 12/21/14
--- NOTE | 2024-10-16 15:23 | XR_ITS ---
FINAL REPORT CLINICAL HISTORY: .pain FINDINGS: AP and frog leg views of the right hip were obtained. There is no acute fracture or dislocation. An IUD is seen in the pelvis. Joint space is preserved. Soft tissues are unremarkable. IMPRESSION: No acute osseous abnormality of the right hip. Reviewed, Interpreted and Dictated by Conchita Ledesma MD Transcribed by [place] Early Authenticated and [facility]
--- NOTE | 2024-10-16 15:23 | XR_ITS ---
FINAL REPORT CLINICAL HISTORY: LEFT AND RIGHT HIP PAIN FINDINGS: AP and frog leg views of the left hip were obtained. There is no acute fracture or dislocation. Joint space is preserved. IUD seen in the pelvis. IMPRESSION: No acute osseous abnormality of the left hip. Reviewed, Interpreted and Dictated by Conchita Ledesma MD Transcribed by Kenya Early Authenticated and [facility]
== END 2024-10-16 23:59 | disposition home or self-care (01) ==
LOC: RAD 15:18
PROVIDERS: PCP Nurse Practitioner Family; Visit Provider Nurse Practitioner Family
DX: M25.551 Pain in right hip (principal); M25.552 Pain in left hip; Z97.5 Presence of (intrauterine) contraceptive device
CPT/HCPCS: 73502

== ENCOUNTER 2024-11-11 14:51 | Outpatient (RCR) | payer MEDICAID, SELFPAY ==
--- NOTE | 2024-11-11 15:53 | [facility].PTOPEV ---
PT Evaluation Rehab PT Outpatient Evaluation Start: 11/11/24 14:53 Freq: Status: Active Protocol: Document 11/11/24 14:54 DANY (Rec: 11/11/24 15:53 DANY [id number]) E-signed By Tran Mcnair, PT Outpatient Therapy Subjective History Subjective History Pt is a 29 y/o female who reports chronic bilateral hip pain and locking. Pt reports worsening of pain one month ago during intercourse. Pt reports hip pain is located laterally using the C sign to demonstrate location of pain. Pt reports her hips randomly lock which is painful in nature and feels tingly as it release. Pt denies specific movements that cause her hips to lock. Pt reports pain is also aggravated by prolonged standing, prolonged walking, laying on her side, and ascending stairs. Pt had bilateral hip xrays on 10/16/24 with impression of No acute osseous abnormality of the right hip. Pt denies having a MRI. Pt denies b/b dysfunction. Pt denies further comorbidities to report. New diagnosis of No cancer in past 12 months? Chief Complaint Pain,Catches/Locks Symptom Type Sharp,Numbness,Tingling Symptoms Relieved By OTC Meds Symptoms Aggravated Standing,Physical Activity,Walking By Current Functional Standing,Squatting,Walking,Stairs Limitations Symptom Description Constant but Variable Level of pain today 2 (0-10) Pain scale - at its 2 best (0-10) Pain scale - at its 6 worst (0-10) Lumbopelvic Eval Range of Motion Lumbar Spine Active 60 Flexion Range of Motion (degrees) Lumbar Spine Active 10 Extension Range of Motion (degrees) Left Lumbar Spine 10 Lateral Flexion Active Range of Motion (degrees) Right Lumbar Spine 10 Lateral Flexion Active Range of Motion (degrees) Hip/Knee Eval Gait Observation General Gait Pattern No Deviations/Normal Observation Assistive Device Assistive Devices None / NA Palpation Tenderness bilateral Hip Palpation Tenderness Findings Hip Palpation 2/4 TTP of TFL, glute min, greater trochanter Overall Comment MMT left Hip Flexion Strength 4 Good Grade Hip Abduction 4 Good Strength Grade Hip Adduction 4 Good Strength Grade Hip Extension 4 Good Strength Grade Hip External 4 Good Rotation Strength Grade Hip Internal 4 Good Rotation Strength Grade Knee Extension 5 Normal Strength Grade Knee Flexion 5 Normal Strength Grade right Hip Flexion Strength 4- Good- Grade Hip Abduction 4- Good- Strength Grade Hip Adduction 4- Good- Strength Grade Hip Extension 4- Good- Strength Grade Hip External 4- Good- Rotation Strength Grade Hip Internal 4- Good- Rotation Strength Grade Knee Extension 4+ Good+ Strength Grade Knee Flexion 4+ Good+ Strength Grade ROM left Hip Flexion w/Knee 110 Flexed Active Range of Motion (degrees) Hip External 35 Rotation Active Range of Motion ( degrees) Hip Internal 50 p! Rotation Active Range of Motion ( degrees) right Hip Flexion w/Knee 110 Flexed Active Range of Motion (degrees) Hip External 40 Rotation Active Range of Motion ( degrees) Hip Internal 45 p! Rotation Active Range of Motion ( degrees) Special Tests Sciatic Nerve Negative Left,Negative Right Tension Test Hip Scouring ( Positive Left,Positive Right Quadrant) Test Lower Extremity Functional Index Activities Today, do you or would you have any difficulty at all with: a.Any of your usual No difficulty work, housework or school activities b. Your usual Moderate difficulty hobbies, recreational or sporting activities c. Getting into or Moderate difficulty out of the bath d. Walking between No difficulty rooms e. Putting on your A little bit of difficulty shoes or socks f. Squatting A little bit of difficulty g. Lifting an object No difficulty , like a bag of groceries from the floor h. Performing light A little bit of difficulty activities around your home i. Performing heavy Moderate difficulty activities around your home j. Getting into or No difficulty out of a car k. Walking 2 blocks No difficulty l. Walking a mile A little bit of difficulty m. Going up or down A little bit of difficulty 10 stairs (about 1 flight of stairs) n. Standing for 1 A little bit of difficulty hour o. Sitting for 1 No difficulty hour p. Running on even No difficulty ground q. Running on uneven A little bit of difficulty ground r. Making sharp A little bit of difficulty turns while running fast s. Hopping No difficulty t. Rolling over in No difficulty bed LEFI Score Lower Extremity 66 Functional Index Score Miscellaneous Dx PT Eval Objective Objective Special tests: performed bilaterally + FADIR + SI distraction -SI compression -SUSANA - Slump test Outpatient Therapy Assessment Impairments Problems/ Palpation Tenderness,Impaired Range of Motion,Impaired Impairmments Strength,Impaired Walking,Impaired Standing,Impaired Household Care,Impaired Stair Climbing,Impaired Recreational Activities,Subjective C/O Pain,Impaired Self Care/Self Management Prognosis Rehab Potential Good Clinical Impression Consistent with Yes Diagnosis PT Patient Goals PT Patient Goals PT Short Term 3 weeks: Patient Goals 1. Verbalize compliance with HEP to assist with overall progress 2. Improve pain at worst to 4/10 to improve overall QOL 3. Report ability to lay on her side bilaterally with pain 4/10 or less to assist with sleep health. PT District Recruiter Patient 6 weeks: Goals 1. Improve LEFS score to at least 71/80 to improve overall QOL/function 2. Improve pain at worst to 4/10 to improve overall QOL 3. Improve tenderness to palpation of B hip musculature including TFL/glute min to 0-1/4 to assist with pain. 4. Improve BLE hip MMT to 4+/5 grossly to assist with function. 5. Ascend 1 flight of stairs reciprocally with pain 2/ 10 or less to assist with community navigation. Outpatient Therapy Plan of Care Treatment Plan May Include Therapeutic Exercise Yes Including Home Exercise Program Manual Therapy Yes Techniques Neuromuscular Re- Yes education Therapeutic Yes Activities to Return to Previous Functional/Work Level Gait Training Yes ADL/Self Care Yes Education Mechanical Traction Yes Dry Needling Yes Thermal Modalities Yes Electrical Yes Stimulation Ultrasound/ Yes Phonophoresis Iontophoresis Yes Massage Yes Eval/Re-Eval Yes Aquatic Therapy Yes Frequency Times per week 2 Duration Number of Weeks 4-6 Addendums This patient is a No candidate for social or vocational rehab ? Patient/Guardian Yes verbally acknowledges understanding of treatment program and consents to further treatment? Patient/Guardian Yes verbally acknowledges understanding of diagnosis, prognosis and goals for treatment? Eval Complexity PT Charges 83989 - Low Complexity Shoulder/Elbow Eval Shoulder Objective Measurements Elbow Objective Measurements PHYSICIAN CERTIFICATION: I certify the specified therapy services for Eliazar Lopez are required, authorized, and reviewed every 30 days.
== END 2024-11-11 23:59 | disposition home or self-care (01) ==
LOC: PT 14:51
PROVIDERS: Visit Provider Nurse Practitioner Family
DX: M25.551 Pain in right hip (principal); M25.552 Pain in left hip; G89.29 Other chronic pain
CPT/HCPCS: 97161

== ENCOUNTER 2024-12-09 15:00 | Outpatient (RCR) | payer MEDICAID, SELFPAY | END 2024-12-09 23:59 | disposition home or self-care (01) | LOC: PT 15:00 | PROVIDERS: Visit Provider Nurse Practitioner Family | DX: M25.551 Pain in right hip (principal); M25.552 Pain in left hip | CPT/HCPCS: 97110; 97530 ==

== ENCOUNTER 2025-01-11 11:11 | Outpatient (CLI) | payer MEDICAID, SELFPAY ==
--- OUTSIDE RECORDS SUMMARY | 2022-06-08 07:22 | XMS_ITS | Encounter Summary ---
Author Organization [facility] Address [address] [place] [address] Care Team Providers Care Dairy Manager Name Role Phone Provider, No Known Primary Care Provider Unavail able Reason for Referral * Diagnostic Imaging (Routine) - Canceled Specialty Diagnoses / Procedures Referred By Phillip bettencourt Referred To Contact Radiology Diagnoses Secondary oligomenorrhea Procedures US Non-ob Transvaginal Ari Blackwood CNM [address] [place] [address] Phone: tel: fax: [address] [phone] Phone: tel: fax: Referral ID Status Reason Start Date Expiration Date V isits Requested Visits Authorized [id number] Canceled 02/06/2022 02/06/2023 1 1 Reason for Visit * Diagnostic Imaging (Routine) - Canceled Specialty Diagnoses / Procedures Referred By Phillip bettencourt Referred To Contact Radiology Diagnoses Secondary oligomenorrhea Procedures US Non-ob Transvaginal Ari Blackwood CNM [address] [place] [address] Phone: tel: fax: [facility] [address] [place] [address] Phone: tel: fax: Referral ID Status Reason Start Date Expiration Date V isits Requested Visits Authorized [id number] Canceled 02/06/2022 02/06/2023 1 1 Encounter Details Date Type Department Care Team (Latest Contact Info) Description 06/08/2022 8:22 AM EDT Hospital Encounter [facility] [address] [facility] [address] [place] [id number] Secondary oligomenorrhea Social History Tobacco Use Types Packs/Day Years Used Date Smoking Tobacco: Never Smokeless Tobacco: Never Comments:Vaping Alcohol Use Standard Drinks/Week Comments Not Currently 1 (1 standard drink = 0.6 oz pur e alcohol) Abuse Screen Answer Date Recorded Unsafe at Home or Work/School Not on file Feels Threatened by Someone? Not on file 10/2022 Does Anyone Keep You from Co ntacting Others or Doint Things Outside the Home? Not on file 11/27/2022 Physical Sign of Abuse Present Not on file 1 Housing Stability Answer Date Recorded Current Living Arrangements Not on file 10/2022 Potentially Unsafe Housing Conditions Not on donna e 11/27/2022 Family and Community Support Answer Johnny e Recorded Help with Day-to-Day Activities Not on file 11/27/2022 Lonely or Isolated Not on file 11/27/2022 Employment Answer Date Recorded Do you want help finding or keeping work or a juan m b? Not on file 11/27/2022 Disabilities Answer Date Recorded Concentrating, Remembering, or Making Decisions Difficulty Not on file 11/27/2022 Doing Errands Independently Difficulty Not on fi le 11/27/2022 Education Answer Date Recorded Help with school or training? Not on file Preferred Language Not on file 11/27/2022 Education Answer Date Recorded What is the highest level of school you have completed or the highest degree you have received? High school graduate 02/06/2022 Comments No Sex and Gender Information Value Date Recorded Sex Assigned at Not on file Legal Sex Female 11:21 AM EDT Gender Identity Not on file Sexual Orientation Not on file documented as of this encounter Plan of Treatment Not on file documented as of this encounter Procedures Procedure Name Priority Date/Time Associated Diagnosis Comments US NON-OB TRANSVAGINAL Routine 06/08/2022 8:45 AM EDT Secondary oligomenorrhea documented in this encounter Results * US Non-ob Transvaginal (06/08/2022 8:45 AM EDT) Anatomical Region Laterality Modality Body Ultrasound 06/08/2022 8:40 AM EDT Narrative 06/09/2022 4:31 PM EDT PAT NAME: PAULINA SHEARER MED REC#: [id number] DA: [id number] PAT GEND: F PAT TYPE: O EXAM JOHNNY: [id number] REF PHYS ARI BLACKWOOD Indication ======== oligomenorrhea Dx: Secondary oligomenorrhea [N91.4 (ICD-10-CM)] Comparison Studies There are no relevant prior studies to which this study is being compared Assessment LMP on 05/10/2022 Method ======= Voluson E6, Transvaginal ultrasound examination, Color Doppler flow performed, 3D ultrasound examination. View: Adequate view Uterus ====== Uterus: Normal Uterus position: Anteverted Description of uterine malformations: none Myometrium: Homogeneous Endometrium: Uniform Cervix details: Nabothian cyst noted Uterus long 44 mm Uterus ap 35 mm Uterus tr 38 mm Uterus Vol 29.6 cm Endometrial thickness, total 5.1 mm Cervical length 31.4 mm Right Ovary Rt ovary: Normal Rt ovary morphology: polycystic Rt ovary D1 33.3 mm Rt ovary D2 28.5 mm Rt ovary D3 21.5 mm Rt ovary Vol 10.7 cm Left Ovary ========= Lt ovary: Normal Lt ovary morphology: polycystic Lt ovary D1 34.0 mm Lt ovary D2 19.1 mm Lt ovary D3 19.70 mm Lt ovary Vol 6.7 cm [place] ========= Normal. No free fluid visualized Impression ========= Normal pelvic ultrasound. Polycystic ovaries bilaterally Recommendation Follow-up as clinically indicated. Percussion Instrument Tuner: Radha Garber RDMS Physician: Humza Sanders MD Electronically signed by: Humza Sanders MD at: 16:31 Procedure Note Humza Sanders MD - 06/09/2022 PAT NAME: PAULINA SHEARER MED REC#: [id number] DA: 1995 PAT GEND: F PAT TYPE: O EXAM JOHNNY: [id number] REF PHYS ARI BLACKWOOD Indication ======== oligomenorrhea Dx: Secondary oligomenorrhea [N91.4 (ICD-10-CM)] Comparison Studies There are no relevant prior studies to which this study is beingcompared Assessment LMP on 05/10/2022 Method ======= Voluson E6, Transvaginal ultrasound examination, Color Doppler flowperformed, 3D ultrasound examination. View: Adequate view Uterus ====== Uterus:Normal Uterus position:Anteverted Description of uterine malformations:none Myometrium:Homogeneous Endometrium:Uniform Cervix details:Nabothian cyst noted Uterus long44 mm Uterus ap35 mm Uterus tr38 mm Uterus Vol29.6 cm Endometrial thickness, total5.1 mm Cervical govftv79.4 mm Right Ovary Rt ovary:Normal Rt ovary morphology:polycystic Rt ovary D133.3 mm Rt ovary D228.5 mm Rt ovary D321.5 mm Rt ovary Vol10.7 cm Left Ovary ========= Lt ovary:Normal Lt ovary morphology:polycystic Lt ovary D134.0 mm Lt ovary D219.1 mm Lt ovary D319.70 mm Lt ovary Vol6.7 cm [place] ========= Normal. No free fluid visualized Impression ========= Normal pelvic ultrasound. Polycystic ovaries bilaterally Recommendation Follow-up as clinically indicated. Percussion Instrument Tuner: Radha Garber RDMS Physician: Humza Sanders MD Electronically signed by: Humza Sanders MD at: 16:31 us Ari Blackwood [facility] US ORDERABLES Final Resul t documented in this encounter Visit Diagnoses Diagnosis Secondary oligomenorrhea Scanty or infrequent menstruation documented in this encounter Additional Health Concerns Infection Onset Date Last Indicated Resolved Time COVID (confirmed) 03/03/2021 03/03/2021 06/08/2022 9:08 PM EDT documented as of this encounter Care Teams Dairy Manager Relationship Specialty Start Date End Date Provider, [place] [address] PCP - General 12/21/14 documented as of this encounter
[2025-01-11 20:12] LABS: Coronavirus 19, PCR Not Detected (NotDetected); Influenza A, PCR Not Detected (NotDetected); Influenza B, PCR Not Detected (NotDetected)
--- OUTSIDE RECORDS SUMMARY | 2025-01-12 10:45 | XMS_ITS | Clinical Summary ---
[facility] Address [address] [place] [address] Care Team Providers Care Float Phlebotomist Name Role Phone Provider, No Known Primary Care Provider Unavail able Allergies No known active allergies Medications Magnesium Oxide -Mg Supplement (MAGnesium-Oxide ) 400 (240 Mg) MG tablet Take 1 tablet by mouth Daily. 02/23/2023 Active Bsdtybqk-Ubq-Yk- FA ( 1 + IRON PO) 1 tablet. With folic acid 01/22/2023 Active Active Problems Problem Noted Date Diagnosed Date Rubella non-immune status, antepartum 12/26/2022 PCOS (polycystic ovarian syndrome) 12/25/2022 Encounter for supervision of normal first in first trimester 12/25/2022 Overview (01/01/2023): Unsure of paternity gender: Girl classes discussed: Circumcision (y / n / na): [employer]: Baby's name: Breast/bottle feeding: Placental location: Postdates [...] Health Maintenance Due Date Last Done Comments ANNUAL PHYSICAL 07/10/2016 TDAP/TD VACCINES (1 - Tdap) 2016 Annual Gynecologic Pelvic and Breast Exam 02/07/2023 02/06/2022 INFLUENZA VACCINE 09/19/2024 12/25/2022, 06/04/2019 CHLAMYDIA SCREENING Discontinued 12/25/2022, 12/25/2022 [...] ve Non-Reacti ve 12/25/2022 3:10 PM EST [facility] Blood Venipuncture / Unknown 12/25/2022 11:08 AM EST 12/25/2022 11:10 AM EST Narrative [facility] - 12/25/2022 3:10 PM EST Results may be falsely decreased if patient taking Biotin. Daphne Calero MD LAB BLOOD ORDERABLES Final R esult [facility]
[address] [place] [address], * Chlamydia trachomatis, Neisseria gonorrhoeae, Trichomonas vaginalis, PCR - Swab, Cervix (12/25/2022) Swab Cervix uteri structure / Unknown Daphne Calero MD MICROBIOLOGY - GENERAL ORDER NETTE Final Result [facility] [address] [place] [address] from Last 3 Months or Most Recently Relevant to Health Maintenance Insurance [facility] MEDICAID Care Teams Float Phlebotomist Relationship Specialty Start Date End Date Provider, [place] [address] PCP - General 12/21/14
== END 2025-01-11 23:59 ==
LOC: LAB.DROPOF 01-12 10:23
PROVIDERS: PCP Nurse Practitioner Family; Visit Provider Nurse Practitioner
DX: J06.9 Acute upper respiratory infection, unspecified (principal)
CPT/HCPCS: 87631